=== PATIENT | female | born 1975 | race Caucasian/White ===

== ENCOUNTER 2016-08-24 16:36 | Emergency (ER) | payer OTHER ==
[~2016-08-24] VITALS: Ht 165.1 cm; Wt 58.1 kg
[~2016-08-24 16:36] MED LIST: CEPHALEXIN500 MG PO; CYCLOBENZAPRINE10 MG PO; IRON325 M1 PO; MELOXICAM15 MG PO; NAPROSYN500 MG PO; NORCO 5-325 TA1 EACH PO; PROVERA10 MG PO; SPRINTEC1 EACH PO; TRIAMCINOLONE A15 GM TOP; ZOFRAN ODT4 MG SL
[2017-01-05] MEDS ORDERED: PHENAZOPYRIDIN100 MG PO (22:31)
[2017-01-05] MEDS ORDERED: BENADRYL25 MG PO (22:35)
[2017-01-05] MEDS ORDERED: AZO URINARY P97.5 MG PO (22:35)
[2017-01-31] MEDS ORDERED: LOVENOX80 MG/0.8 SUB-Q (04:22)
[2017-02-17] MEDS ORDERED: AUGMENTIN 875-1 EACH PO (04:25)
== END 2016-08-24 17:05 | disposition home or self-care (01) ==
LOC: ED 16:36
DX: T63.441A Toxic effect of venom of bees, accidental (unintentional), initial encounter (principal); D64.9 Anemia, unspecified; F17.200 Nicotine dependence, unspecified, uncomplicated; Z88.2 Allergy status to sulfonamides; Z87.442 Personal history of urinary calculi; Z88.1 Allergy status to other antibiotic agents; Z91.030 Bee allergy status
CPT/HCPCS: 99282; J1200

== ENCOUNTER 2016-08-28 13:25 | Emergency (ER) | payer SELFPAY ==
[~2016-08-28] VITALS: Ht 165.1 cm; Wt 58.1 kg
[2017-01-05] MEDS ORDERED: PHENAZOPYRIDIN100 MG PO (22:31)
[2017-01-05] MEDS ORDERED: BENADRYL25 MG PO (22:35)
[2017-01-05] MEDS ORDERED: AZO URINARY P97.5 MG PO (22:35)
[2017-01-31] MEDS ORDERED: LOVENOX80 MG/0.8 SUB-Q (04:22)
[2017-02-17] MEDS ORDERED: AUGMENTIN 875-1 EACH PO (04:25)
== END 2016-08-28 13:42 | disposition home or self-care (01) ==
LOC: ED 13:25
DX: Z00.8 Encounter for other general examination (principal)

== ENCOUNTER 2016-09-01 20:32 | Emergency (ER) | payer SELFPAY ==
[~2016-09-01] VITALS: Ht 165.1 cm; Wt 58.1 kg
[2017-01-05] MEDS ORDERED: PHENAZOPYRIDIN100 MG PO (22:31)
[2017-01-05] MEDS ORDERED: BENADRYL25 MG PO (22:35)
[2017-01-05] MEDS ORDERED: AZO URINARY P97.5 MG PO (22:35)
[2017-01-31] MEDS ORDERED: LOVENOX80 MG/0.8 SUB-Q (04:22)
[2017-02-17] MEDS ORDERED: AUGMENTIN 875-1 EACH PO (04:25)
== END 2016-09-01 22:25 | disposition home or self-care (01) ==
LOC: ED 20:32
DX: Z53.21 Procedure and treatment not carried out due to patient leaving prior to being seen by health care provider (principal)

== ENCOUNTER 2016-09-02 22:00 | Emergency (ER) | payer OTHER ==
[~2016-09-02] VITALS: Ht 165.1 cm; Wt 58.1 kg
[2016-09-03] MEDS ORDERED: CEPHALEXIN500 MG PO (00:18)
[2016-09-03] MEDS ORDERED: INDOMETHACIN50 MG PO (00:18)
[2016-09-04] MEDS ORDERED: FERROUSUL325 MG PO (18:25)
[2017-01-05] MEDS ORDERED: PHENAZOPYRIDIN100 MG PO (22:31)
[2017-01-05] MEDS ORDERED: AZO URINARY P97.5 MG PO (22:35)
[2017-01-05] MEDS ORDERED: BENADRYL25 MG PO (22:35)
[2017-01-31] MEDS ORDERED: LOVENOX80 MG/0.8 SUB-Q (04:22)
[2017-02-17] MEDS ORDERED: AUGMENTIN 875-1 EACH PO (04:25)
== END 2016-09-03 00:35 | disposition home or self-care (01) ==
LOC: ED 22:00
DX: L03.115 Cellulitis of right lower limb (principal); M10.9 Gout, unspecified; Z85.41 Personal history of malignant neoplasm of cervix uteri; F17.200 Nicotine dependence, unspecified, uncomplicated; Z91.038 Other insect allergy status; Z88.1 Allergy status to other antibiotic agents; Z88.2 Allergy status to sulfonamides
CPT/HCPCS: 73610; 99283

== ENCOUNTER 2016-09-04 14:08 | Emergency (ER) | payer OTHER ==
[~2016-09-04] VITALS: Ht 165.1 cm; Wt 56.2 kg
[~2016-09-04 14:08] MED LIST changes: +INDOMETHACIN50 MG PO
[2016-09-04] MEDS ORDERED: FERROUSUL325 MG PO (18:25)
[2017-01-05] MEDS ORDERED: PHENAZOPYRIDIN100 MG PO (22:31)
[2017-01-05] MEDS ORDERED: BENADRYL25 MG PO (22:35)
[2017-01-05] MEDS ORDERED: AZO URINARY P97.5 MG PO (22:35)
[2017-01-31] MEDS ORDERED: LOVENOX80 MG/0.8 SUB-Q (04:22)
[2017-02-17] MEDS ORDERED: AUGMENTIN 875-1 EACH PO (04:25)
== END 2016-09-04 18:56 | disposition home or self-care (01) ==
LOC: ED 14:08
DX: R10.9 Unspecified abdominal pain (principal); N39.0 Urinary tract infection, site not specified; D64.9 Anemia, unspecified; F17.200 Nicotine dependence, unspecified, uncomplicated; Z87.442 Personal history of urinary calculi; Z88.2 Allergy status to sulfonamides; Z88.1 Allergy status to other antibiotic agents; Z91.030 Bee allergy status; Z79.899 Other long term (current) drug therapy
CPT/HCPCS: 74176; 80053; 81001; 83690; 84703; 85025; 87088; 96374; 99284; J1885; J7030

== ENCOUNTER 2016-09-05 01:00 | Emergency (ER) | payer OTHER ==
[~2016-09-05] VITALS: Ht 165.1 cm; Wt 56.2 kg
[~2016-09-05 01:00] MED LIST changes: +FERROUSUL325 MG PO
[2017-01-05] MEDS ORDERED: PHENAZOPYRIDIN100 MG PO (22:31)
[2017-01-05] MEDS ORDERED: AZO URINARY P97.5 MG PO (22:35)
[2017-01-05] MEDS ORDERED: BENADRYL25 MG PO (22:35)
[2017-01-31] MEDS ORDERED: LOVENOX80 MG/0.8 SUB-Q (04:22)
[2017-02-17] MEDS ORDERED: AUGMENTIN 875-1 EACH PO (04:25)
== END 2016-09-05 02:41 | disposition home or self-care (01) ==
LOC: ED 01:00
DX: D50.9 Iron deficiency anemia, unspecified (principal); L03.115 Cellulitis of right lower limb; F17.200 Nicotine dependence, unspecified, uncomplicated; Z87.442 Personal history of urinary calculi; Z88.2 Allergy status to sulfonamides; Z88.1 Allergy status to other antibiotic agents; Z79.899 Other long term (current) drug therapy; Z85.41 Personal history of malignant neoplasm of cervix uteri
CPT/HCPCS: 36415; 85025; 86900; 86901; 86920; 99283; P9016

== ENCOUNTER 2016-09-10 01:46 | Emergency (ER) | payer OTHER ==
[~2016-09-10] VITALS: Ht 165.1 cm; Wt 56.2 kg
[2016-09-10] MEDS ORDERED: METHYLPREDNISOLO4 M1 PO (01:53)
[2017-01-05] MEDS ORDERED: PHENAZOPYRIDIN100 MG PO (22:31)
[2017-01-05] MEDS ORDERED: AZO URINARY P97.5 MG PO (22:35)
[2017-01-05] MEDS ORDERED: BENADRYL25 MG PO (22:35)
[2017-01-31] MEDS ORDERED: LOVENOX80 MG/0.8 SUB-Q (04:22)
[2017-02-17] MEDS ORDERED: AUGMENTIN 875-1 EACH PO (04:25)
== END 2016-09-10 04:02 | disposition home or self-care (01) ==
LOC: ED 01:46
DX: M54.5 Low back pain (principal); R10.31 Right lower quadrant pain; R10.32 Left lower quadrant pain; D50.9 Iron deficiency anemia, unspecified; G89.29 Other chronic pain; F17.200 Nicotine dependence, unspecified, uncomplicated; Z87.442 Personal history of urinary calculi; Z91.030 Bee allergy status; Z88.2 Allergy status to sulfonamides; Z88.1 Allergy status to other antibiotic agents; Z79.899 Other long term (current) drug therapy
CPT/HCPCS: 80053; 81001; 83690; 84703; 85025; 99283

== ENCOUNTER 2016-10-12 19:56 | Emergency (ER) | payer OTHER ==
[~2016-10-12] VITALS: Ht 165.1 cm; Wt 56.2 kg
[~2016-10-12 19:56] MED LIST changes: +METHYLPREDNISOLO4 M1 PO
[2016-10-12] MEDS ORDERED: NORCO 5-325 TA1 EACH PO (20:19)
[2016-10-12] MEDS ORDERED: PERCOCET 5-3251 EACH PO (21:16)
[2017-01-05] MEDS ORDERED: PHENAZOPYRIDIN100 MG PO (22:31)
[2017-01-05] MEDS ORDERED: AZO URINARY P97.5 MG PO (22:35)
[2017-01-05] MEDS ORDERED: BENADRYL25 MG PO (22:35)
[2017-01-31] MEDS ORDERED: LOVENOX80 MG/0.8 SUB-Q (04:22)
[2017-02-17] MEDS ORDERED: AUGMENTIN 875-1 EACH PO (04:25)
== END 2016-10-12 21:27 | disposition home or self-care (01) ==
LOC: ED 19:56
DX: C53.9 Malignant neoplasm of cervix uteri, unspecified (principal); F17.200 Nicotine dependence, unspecified, uncomplicated; Z87.442 Personal history of urinary calculi; Z91.038 Other insect allergy status; Z88.1 Allergy status to other antibiotic agents; Z88.2 Allergy status to sulfonamides; Z79.2 Long term (current) use of antibiotics
CPT/HCPCS: 99283

== ENCOUNTER 2016-10-16 18:57 | Emergency (ER) | payer OTHER ==
[~2016-10-16] VITALS: Ht 165.1 cm; Wt 56.2 kg
[~2016-10-16 18:57] MED LIST changes: +PERCOCET 5-3251 EACH PO
[2016-10-16] MEDS ORDERED: PERCOCET 5-3251 EACH PO (20:16)
--- NOTE | 2016-10-17 17:35 | EKG ---
[facility] [address] [facility] [facility] [address] [place] [address] Signed Normal sinus rhythm Normal ECG No previous ECGs available Confirmed by AMARJIT NORTON MD ([id number]) on 10/17/2016 5:35:36 PM Electronically Signed By: AMARJIT NORTON MD 10/17/16 1735 PATIENT NAME: BULMARO CARDOZA Electrocardiogram DATE OF : 77 PHYSICIAN: AMARJIT NORTON MD REPORT #: [id number] REPORT IS CONFIDENTIAL AND NOT TO BE RELEASED WITHOUT AUTHORIZATION
[2017-01-05] MEDS ORDERED: PHENAZOPYRIDIN100 MG PO (22:31)
[2017-01-05] MEDS ORDERED: BENADRYL25 MG PO (22:35)
[2017-01-05] MEDS ORDERED: AZO URINARY P97.5 MG PO (22:35)
[2017-01-31] MEDS ORDERED: LOVENOX80 MG/0.8 SUB-Q (04:22)
[2017-02-17] MEDS ORDERED: AUGMENTIN 875-1 EACH PO (04:25)
== END 2016-10-16 20:38 | disposition home or self-care (01) ==
LOC: ED 18:57
DX: M54.5 Low back pain (principal); C76.0 Malignant neoplasm of head, face and neck; D64.9 Anemia, unspecified; F17.200 Nicotine dependence, unspecified, uncomplicated; Z87.442 Personal history of urinary calculi; Z86.711 Personal history of pulmonary embolism; Z91.030 Bee allergy status; Z88.2 Allergy status to sulfonamides; Z88.1 Allergy status to other antibiotic agents; Z79.899 Other long term (current) drug therapy
CPT/HCPCS: 71010; 80053; 81001; 84484; 85025; 85610; 85730; 93005; 93010; 99284

== ENCOUNTER 2016-10-20 14:57 | Emergency (ER) | payer OTHER ==
[~2016-10-20] VITALS: Ht 165.1 cm; Wt 56.2 kg
[2017-01-05] MEDS ORDERED: PHENAZOPYRIDIN100 MG PO (22:31)
[2017-01-05] MEDS ORDERED: AZO URINARY P97.5 MG PO (22:35)
[2017-01-05] MEDS ORDERED: BENADRYL25 MG PO (22:35)
[2017-01-31] MEDS ORDERED: LOVENOX80 MG/0.8 SUB-Q (04:22)
[2017-02-17] MEDS ORDERED: AUGMENTIN 875-1 EACH PO (04:25)
== END 2016-10-20 15:33 | disposition left against medical advice (07) ==
LOC: ED 14:57
DX: F15.10 Other stimulant abuse, uncomplicated (principal); D64.9 Anemia, unspecified; F17.200 Nicotine dependence, unspecified, uncomplicated; Z91.030 Bee allergy status; Z88.2 Allergy status to sulfonamides; Z88.1 Allergy status to other antibiotic agents; Z79.899 Other long term (current) drug therapy; Z87.442 Personal history of urinary calculi; Z85.89 Personal history of malignant neoplasm of other organs and systems
CPT/HCPCS: 99283

== ENCOUNTER 2016-10-21 11:23 | Emergency (ER) | payer OTHER ==
[~2016-10-21] VITALS: Ht 165.1 cm; Wt 56.2 kg
[2017-01-05] MEDS ORDERED: PHENAZOPYRIDIN100 MG PO (22:31)
[2017-01-05] MEDS ORDERED: AZO URINARY P97.5 MG PO (22:35)
[2017-01-05] MEDS ORDERED: BENADRYL25 MG PO (22:35)
[2017-01-31] MEDS ORDERED: LOVENOX80 MG/0.8 SUB-Q (04:22)
[2017-02-17] MEDS ORDERED: AUGMENTIN 875-1 EACH PO (04:25)
== END 2016-10-21 13:34 | disposition home or self-care (01) ==
LOC: ED 11:23
DX: R10.9 Unspecified abdominal pain (principal); G89.29 Other chronic pain; D53.9 Nutritional anemia, unspecified; F17.200 Nicotine dependence, unspecified, uncomplicated; Z87.442 Personal history of urinary calculi; Z85.41 Personal history of malignant neoplasm of cervix uteri; Z86.711 Personal history of pulmonary embolism; Z91.038 Other insect allergy status; Z88.1 Allergy status to other antibiotic agents; Z88.2 Allergy status to sulfonamides
CPT/HCPCS: 36415; 85025; 85610; 85730; 96372; 99283; J1885

== ENCOUNTER 2016-10-22 13:02 | Emergency (ER) | payer OTHER ==
[~2016-10-22] VITALS: Ht 165.1 cm; Wt 56.2 kg
--- NOTE | 2016-10-24 21:46 | EKG ---
[facility] [address] [facility] [place] [address] Signed Normal sinus rhythm Normal ECG When compared with ECG of 16-OCT-2016 19:02, No significant change was found Confirmed by AMARJIT NORTON MD ([id number]) on 10/24/2016 9:46:10 PM Electronically Signed By: AMARJIT NORTON MD 10/24/16 2146 PATIENT NAME: SONYBULMAROASHLY ANDREWS Electrocardiogram DATE OF : 77 PHYSICIAN: AMARJIT NORTON MD REPORT #: [id number] REPORT IS CONFIDENTIAL AND NOT TO BE RELEASED WITHOUT AUTHORIZATION
[2017-01-05] MEDS ORDERED: PHENAZOPYRIDIN100 MG PO (22:31)
[2017-01-05] MEDS ORDERED: BENADRYL25 MG PO (22:35)
[2017-01-05] MEDS ORDERED: AZO URINARY P97.5 MG PO (22:35)
[2017-01-31] MEDS ORDERED: LOVENOX80 MG/0.8 SUB-Q (04:22)
[2017-02-17] MEDS ORDERED: AUGMENTIN 875-1 EACH PO (04:25)
== END 2016-10-22 14:41 | disposition home or self-care (01) ==
LOC: ED 13:02
DX: R06.00 Dyspnea, unspecified (principal); R07.89 Other chest pain; D64.9 Anemia, unspecified; F17.200 Nicotine dependence, unspecified, uncomplicated; Z87.442 Personal history of urinary calculi; Z85.41 Personal history of malignant neoplasm of cervix uteri; Z86.711 Personal history of pulmonary embolism; Z91.038 Other insect allergy status; Z88.1 Allergy status to other antibiotic agents; Z88.2 Allergy status to sulfonamides; Z79.899 Other long term (current) drug therapy
CPT/HCPCS: 36415; 71010; 80053; 84484; 85025; 93005; 93010; 99284

== ENCOUNTER 2016-10-24 16:30 | Emergency (ER) | payer OTHER ==
[~2016-10-24] VITALS: Ht 165.1 cm; Wt 56.2 kg
[2016-10-24] MEDS ORDERED: DOXYCYCLINE HY100 MG PO (19:02)
[2017-01-05] MEDS ORDERED: PHENAZOPYRIDIN100 MG PO (22:31)
[2017-01-05] MEDS ORDERED: BENADRYL25 MG PO (22:35)
[2017-01-05] MEDS ORDERED: AZO URINARY P97.5 MG PO (22:35)
[2017-01-31] MEDS ORDERED: LOVENOX80 MG/0.8 SUB-Q (04:22)
[2017-02-17] MEDS ORDERED: AUGMENTIN 875-1 EACH PO (04:25)
== END 2016-10-24 19:10 | disposition home or self-care (01) ==
LOC: ED 16:30
DX: N39.0 Urinary tract infection, site not specified (principal); D53.9 Nutritional anemia, unspecified; F17.200 Nicotine dependence, unspecified, uncomplicated; F19.10 Other psychoactive substance abuse, uncomplicated; Z87.442 Personal history of urinary calculi; Z85.41 Personal history of malignant neoplasm of cervix uteri; Z86.711 Personal history of pulmonary embolism; Z91.038 Other insect allergy status; Z88.1 Allergy status to other antibiotic agents; Z88.2 Allergy status to sulfonamides; Z79.899 Other long term (current) drug therapy
CPT/HCPCS: 80053; 81001; 84703; 85025; 87088; 96361; 96365; 96375; 99283; J0696; J1885; J7030

== ENCOUNTER 2016-11-04 20:33 | Emergency (ER) | payer OTHER ==
[~2016-11-04] VITALS: Ht 165.1 cm; Wt 56.2 kg
[~2016-11-04 20:33] MED LIST changes: +DOXYCYCLINE HY100 MG PO
[2016-11-04] MEDS ORDERED: PERCOCET 5-3251 EACH PO (20:44)
[2017-01-05] MEDS ORDERED: PHENAZOPYRIDIN100 MG PO (22:31)
[2017-01-05] MEDS ORDERED: BENADRYL25 MG PO (22:35)
[2017-01-05] MEDS ORDERED: AZO URINARY P97.5 MG PO (22:35)
[2017-01-31] MEDS ORDERED: LOVENOX80 MG/0.8 SUB-Q (04:22)
[2017-02-17] MEDS ORDERED: AUGMENTIN 875-1 EACH PO (04:25)
== END 2016-11-04 23:50 | disposition home or self-care (01) ==
LOC: ED 20:33
DX: D50.9 Iron deficiency anemia, unspecified (principal); C53.9 Malignant neoplasm of cervix uteri, unspecified; F17.200 Nicotine dependence, unspecified, uncomplicated; Z87.442 Personal history of urinary calculi; Z86.711 Personal history of pulmonary embolism; Z88.1 Allergy status to other antibiotic agents; Z88.2 Allergy status to sulfonamides; Z91.038 Other insect allergy status; Z79.899 Other long term (current) drug therapy; Z98.890 Other specified postprocedural states
CPT/HCPCS: 80053; 81001; 85025; 86850; 86900; 86901; 99283

== ENCOUNTER 2016-11-30 09:45 | Emergency (ER) | payer OTHER ==
[~2016-11-30] VITALS: Ht 165.1 cm; Wt 51.3 kg
[2016-11-30] MEDS ORDERED: OXYCONTIN15 MG PO (11:15)
[2016-11-30] MEDS ORDERED: FERROUS SULFAT325 MG PO (11:55)
[2016-11-30] MEDS ORDERED: PERCOCET 5-3251 EACH PO (11:56)
[2016-11-30] MEDS ORDERED: NORCO 5-325 TA1 EACH PO (11:56)
[2016-11-30] MEDS ORDERED: NICODERM CQ1 EAC1 TD (11:58)
[2016-11-30] MEDS ORDERED: OXYCODONE HCL15 MG PO (11:59)
[2016-11-30] MEDS ORDERED: XARELTO10 MG PO (12:12)
[2017-01-05] MEDS ORDERED: PHENAZOPYRIDIN100 MG PO (22:31)
[2017-01-05] MEDS ORDERED: AZO URINARY P97.5 MG PO (22:35)
[2017-01-05] MEDS ORDERED: BENADRYL25 MG PO (22:35)
[2017-01-31] MEDS ORDERED: LOVENOX80 MG/0.8 SUB-Q (04:22)
[2017-02-17] MEDS ORDERED: AUGMENTIN 875-1 EACH PO (04:25)
== END 2016-11-30 12:30 | disposition home or self-care (01) ==
LOC: ED 09:45
DX: G89.3 Neoplasm related pain (acute) (chronic) (principal); C76.0 Malignant neoplasm of head, face and neck; Z87.442 Personal history of urinary calculi; F17.200 Nicotine dependence, unspecified, uncomplicated; Z91.030 Bee allergy status; Z88.2 Allergy status to sulfonamides; Z88.1 Allergy status to other antibiotic agents; Z79.899 Other long term (current) drug therapy
CPT/HCPCS: 99282

== ENCOUNTER 2016-12-06 20:36 | Emergency (ER) | payer OTHER ==
[~2016-12-06] VITALS: Ht 165.1 cm; Wt 51.3 kg
[~2016-12-06 20:36] MED LIST changes: +FERROUS SULFAT325 MG PO; +NICODERM CQ1 EAC1 TD; +OXYCODONE HCL15 MG PO; +OXYCONTIN15 MG PO; +XARELTO10 MG PO
[2017-01-05] MEDS ORDERED: PHENAZOPYRIDIN100 MG PO (22:31)
[2017-01-05] MEDS ORDERED: AZO URINARY P97.5 MG PO (22:35)
[2017-01-05] MEDS ORDERED: BENADRYL25 MG PO (22:35)
[2017-01-31] MEDS ORDERED: LOVENOX80 MG/0.8 SUB-Q (04:22)
[2017-02-17] MEDS ORDERED: AUGMENTIN 875-1 EACH PO (04:25)
== END 2016-12-07 00:05 | disposition home or self-care (01) ==
LOC: ED 20:36
DX: C53.9 Malignant neoplasm of cervix uteri, unspecified (principal); D64.9 Anemia, unspecified; F17.200 Nicotine dependence, unspecified, uncomplicated; Z86.711 Personal history of pulmonary embolism; Z88.2 Allergy status to sulfonamides; Z88.1 Allergy status to other antibiotic agents; Z91.038 Other insect allergy status; Z87.442 Personal history of urinary calculi; Z91.030 Bee allergy status
CPT/HCPCS: 80053; 81001; 85025; 96374; 96375; 99283; J1170; J2405

== ENCOUNTER 2016-12-12 20:12 | Emergency (ER) | payer OTHER ==
[~2016-12-12] VITALS: Ht 165.1 cm; Wt 51.7 kg
[2016-12-12] MEDS ORDERED: DEXAMETHASONE4 MG PO (21:20)
[2016-12-12] MEDS ORDERED: OXYBUTYNIN CHLO10 MG PO (21:20)
[2016-12-12] MEDS ORDERED: ONDANSETRON ODT8 MG PO (21:21)
[2016-12-12] MEDS ORDERED: FLOMAX0.4 MG PO (21:24)
[2016-12-12] MEDS ORDERED: XARELTO15 MG PO (21:29)
[2016-12-12] MEDS ORDERED: PERCOCET 5-3251 EACH PO (21:31)
[2016-12-12] MEDS ORDERED: ATIVAN0.5 MG PO (21:32)
[2017-01-05] MEDS ORDERED: PHENAZOPYRIDIN100 MG PO (22:31)
[2017-01-05] MEDS ORDERED: AZO URINARY P97.5 MG PO (22:35)
[2017-01-05] MEDS ORDERED: BENADRYL25 MG PO (22:35)
[2017-01-31] MEDS ORDERED: LOVENOX80 MG/0.8 SUB-Q (04:22)
[2017-02-17] MEDS ORDERED: AUGMENTIN 875-1 EACH PO (04:25)
== END 2016-12-12 23:39 | disposition home or self-care (01) ==
LOC: ED 20:12
DX: C53.9 Malignant neoplasm of cervix uteri, unspecified (principal); F17.200 Nicotine dependence, unspecified, uncomplicated; Z87.442 Personal history of urinary calculi; Z91.030 Bee allergy status; Z88.2 Allergy status to sulfonamides; Z88.1 Allergy status to other antibiotic agents; Z79.899 Other long term (current) drug therapy; Z79.891 Long term (current) use of opiate analgesic
CPT/HCPCS: 99282

== ENCOUNTER 2016-12-19 22:53 | Emergency (ER) | payer OTHER ==
[~2016-12-19] VITALS: Ht 165.1 cm; Wt 51.7 kg
[~2016-12-19 22:53] MED LIST changes: +ATIVAN0.5 MG PO; +DEXAMETHASONE4 MG PO; +FLOMAX0.4 MG PO; +ONDANSETRON ODT8 MG PO; +OXYBUTYNIN CHLO10 MG PO; +XARELTO15 MG PO
[2017-01-05] MEDS ORDERED: PHENAZOPYRIDIN100 MG PO (22:31)
[2017-01-05] MEDS ORDERED: AZO URINARY P97.5 MG PO (22:35)
[2017-01-05] MEDS ORDERED: BENADRYL25 MG PO (22:35)
[2017-01-31] MEDS ORDERED: LOVENOX80 MG/0.8 SUB-Q (04:22)
[2017-02-17] MEDS ORDERED: AUGMENTIN 875-1 EACH PO (04:25)
== END 2016-12-20 02:02 | disposition left against medical advice (07) ==
LOC: ED 22:53
DX: R06.00 Dyspnea, unspecified (principal); C76.0 Malignant neoplasm of head, face and neck; G89.29 Other chronic pain; Z87.442 Personal history of urinary calculi; F17.200 Nicotine dependence, unspecified, uncomplicated; Z91.030 Bee allergy status; Z88.2 Allergy status to sulfonamides; Z88.1 Allergy status to other antibiotic agents; Z79.899 Other long term (current) drug therapy
CPT/HCPCS: 71010; 84703; 96374; 99283

== ENCOUNTER 2016-12-25 20:36 | Emergency (ER) | payer OTHER ==
[~2016-12-25] VITALS: Ht 165.1 cm; Wt 52.6 kg
[2016-12-25] MEDS ORDERED: ROXICODONE15 MG PO (20:53)
[2017-01-05] MEDS ORDERED: PHENAZOPYRIDIN100 MG PO (22:31)
[2017-01-05] MEDS ORDERED: AZO URINARY P97.5 MG PO (22:35)
[2017-01-05] MEDS ORDERED: BENADRYL25 MG PO (22:35)
[2017-01-31] MEDS ORDERED: LOVENOX80 MG/0.8 SUB-Q (04:22)
[2017-02-17] MEDS ORDERED: AUGMENTIN 875-1 EACH PO (04:25)
== END 2016-12-25 23:30 | disposition home or self-care (01) ==
LOC: ED 20:36
PROC: 4A0D7LZ Measurement of Urinary Volume, Via Natural or Artificial Opening (ICD-10-PCS; principal; 2016-12-25)
DX: C53.9 Malignant neoplasm of cervix uteri, unspecified (principal); F17.200 Nicotine dependence, unspecified, uncomplicated; Z87.442 Personal history of urinary calculi; Z88.2 Allergy status to sulfonamides; Z91.030 Bee allergy status; Z79.899 Other long term (current) drug therapy; Z88.1 Allergy status to other antibiotic agents
CPT/HCPCS: 51798; 81001; 87088; 96374; 96375; 99283; J0696; J1170; J2405

== ENCOUNTER 2016-12-27 02:31 | Emergency (ER) | payer OTHER ==
[~2016-12-27] VITALS: Ht 165.1 cm; Wt 52.6 kg
--- OUTSIDE RECORDS SUMMARY | ~2016-12-27 | XMS | Encounter Summary ---
Demographics + + + | Address | [address] | | | [place] [address] | + + + | Home Phone | | + + + | Preferred Language | Unknown | + + + | Marital Status | Single | + + + | Sikh Affiliation | Unknown | + + + | Race | White | + + + | Ethnic Group | Not or | + + + Author + + + | Author | [facility] | + + + | Organization | [facility] | + + + | Address | Unknown | + + + | Phone | Unavailable | + + + Support +------+ +---------+ + | Name | Relationship | Address | Phone | +------+ +---------+ + ECON | Unknown | | +------+ +---------+ + Care Team Providers + +------+ + | Care Product Inspection Coordinator Name | Role | Phone | [...] | | | | | | Road [place], [place] | | | | | | [address] | | | +--------+ + + + [...] Rd | | | | | | [place], [place] | | | | | | [address] | | | | | | [phone] | | | | | | | | +--------+---------+ + + + as of this encounter Visit Diagnoses Not on filein this encounter Admitting Diagnoses + + | Diagnosis | + + | Malignant neoplasm of cervix uteri, unspecified | + +"
--- OUTSIDE RECORDS SUMMARY | ~2016-12-27 | XMS | Encounter Summary ---
Demographics + + + | Address | [address] | | | [place] [address] | + + + | Home Phone | | + + + | Preferred Language | Unknown | + + + | Marital Status | Single | + + + | Denominational Affiliation | Unknown | + + + | Race | White | + + + | Ethnic Group | Not or | + + + Author + + + | Author | [facility] | + + + | Organization | [facility] | + + + | Address | Unknown | + + + | Phone | Unavailable | + + + Support +------+ +---------+ + | Name | Relationship | Address | Phone | +------+ +---------+ + ECON | Unknown | | +------+ +---------+ + Care Team Providers + +------+ + | Care Tray Drier Operator Name | Role | Phone | [...] | | | | | | Road [place], [place] | | | | | | [address] | | | +--------+ + + + [...] Rd | | | | | | [place], [place] | | | | | | [address] | | | | | | [phone] | | | | | | | | +--------+---------+ + + + as of this encounter Visit Diagnoses Not on filein this encounter Admitting Diagnoses + + | Diagnosis | + + | Malignant neoplasm of cervix uteri, unspecified | + +"
--- OUTSIDE RECORDS SUMMARY | ~2016-12-27 | XMS | Encounter Summary ---
Demographics + + + | Address | [address] | | | [place] [address] | + + + | Home Phone | | + + + | Preferred Language | Unknown | + + + | Marital Status | Single | + + + | Caodaism Affiliation | Unknown | + + + [...] Team Providers + +------+ + | Care Barn Hand Name | Role | Phone | + [...] | | | | | | Road [place], [place] | | | | | | [address] | | | +--------+ + + + [...] Rd | | | | | | [place], [place] | | | | | | [address] | | | | | | [phone] | | | | | | | [...] | | | Received:Referring Institution: [facility] | | | | [place], [place] [address]O[place]z | | | | Accession Number: [id number] | | | | Collection Date: | | | | 09/21/2016Sublabeled H&E | | | | A to | | | | B 2 | | | | Final Pathologic Diagnosis:A. Cervix, | | | | biopsy ([id number]; 09/21/16, sublabeled | | | | A): - Invasive well differentiated | | | | adenocarcinoma. B. Endocervix, | | | | curettage ([id number]; 09/21/16, sublabeled | | | | B):- [...] Laboratory | + + + | | [facility] [address] | | | [place] [address] | + + + in this encounter Visit Diagnoses Not on filein this encounter Admitting Diagnoses + + | Diagnosis | + + | Malignant neoplasm of cervix uteri, unspecified | + +"
--- OUTSIDE RECORDS SUMMARY | ~2016-12-27 | XMS | Encounter Summary ---
Demographics + + + | Address | [address] | | | [place] [address] | + + + | Home Phone [...] Author + + + | Author | [facility] | + + + | Organization | [facility] | + + + | Address | Unknown | + + + | Phone | Unavailable | + + + Support +------+ +---------+ + | Name | Relationship | Address | Phone | +------+ +---------+ + ECON | Unknown | | +------+ +---------+ + Care Team Providers + +------+ + | Care Assembler Tubing Name | Role | Phone | + [...] Prior Authorization | | 2016 | | [facility] | [address] | Request - Medication | | | | [address] | [address] | | | | | [address] | [place], [place] | | | | | [address] | [address] | | | | | Shubham [place], | [phone] | | | | | [place] [address] | | | | | | [phone] | | | +--------+ + + + [...] Rd | | | | | | [place], [place] | | | | | | [address] | | | | | | [phone] | | | | | | | | +--------+---------+ + + + as of this encounter Visit Diagnoses Not on filein this encounter"
--- OUTSIDE RECORDS SUMMARY | ~2016-12-27 | XMS | Clinical Summary ---
Demographics + + + | Address | [address] | | | [place] [address] | + + + | Home Phone | | + + + | Preferred Language | Unknown | + + + | Marital Status | Single | + + + | Advent Affiliation | Unknown | + + + [...] Team Providers + +------+ + | Care Fuselage Framer Name | Role | Phone | + +------+ + | No Pcp Per Patient | PP | Unavailable | + +------+ + Source Comments FARRUKH is fully live on both [facility] and [facility] In[facility] Allergies + + [...] + + + + | 10/30/ | Transit Mechanic | | Quirino Martinez, | Malignant neoplasm [...] Rd | | | | | | [place], [place] | | | | | | [address] | | | | | | [phone] | | | | | | | [...] Materials | | | | Received:Referring Institution: [facility] | | | | [place], [place] [address]w | | | | Accession Number: [id number] | | | | Collection Date: | | | | 09/21/2016Sublabeled H&E | | | | A to | | | | B 2 | | | | Final Pathologic Diagnosis:A. Cervix, | | | | biopsy ([id number]; 09/21/16, sublabeled | | | | A): - Invasive well differentiated | | | | adenocarcinoma. B. Endocervix, | | | | curettage ([id number]; 09/21/16, sublabeled | | | | B):- [...] [facility] DEPARTMENT OF PATHOLOGY [address] | | | [place] [address] | + + + from Last 3 Months
--- OUTSIDE RECORDS SUMMARY | ~2016-12-27 | XMS | Encounter Summary ---
Demographics + + + | Address | [address] | | | [place] [address] | + + + | Home Phone | | + + + | Preferred Language | Unknown | + + + | Marital Status | Single | + + + | Yarsanism Affiliation | Unknown | + + + | Race | White | + + + | Ethnic Group | Not or | + + + Author + + + | Author | [facility] | + + + | Organization | [facility] | + + + | Address | Unknown | + + + | Phone | Unavailable | + + + Support +------+ +---------+ + | Name | Relationship | Address | Phone | +------+ +---------+ + ECON | Unknown | | +------+ +---------+ + Care Team Providers + +------+ + | Care Truck Cleaner Name | Role | Phone | [...] Prior Authorization | | 2016 | | [facility] | [address] | Request - Medication | | | | [address] | [address] | | | | | [address] | [place], [place] | | | | | [address] | [address] | | | | | Sh[place]ham [place], | [phone] | | | | | [place] [address] | | | | | | [phone] | | | +--------+ + + + [...] Rd | | | | | | [place], [place] | | | | | | [address] | | | | | | [phone] | | | | | | | | +--------+---------+ + + + as of this encounter Visit Diagnoses Not on filein this encounter"
--- OUTSIDE RECORDS SUMMARY | ~2016-12-27 | XMS | Encounter Summary ---
Demographics + + + | Address | [address] | | | [place] [address] | + + + | Home Phone | | + + + | Preferred Language | Unknown | + + + | Marital Status | Single | + + + | Episcopalian Affiliation | Unknown | + + + [...] Team Providers + +------+ + | Care Hospice Executive Director Name | Role | Phone | [...] | | 2016 | | [facility] | [address] | Michelle) | | | | Shubham [address] | [address] | | | | | [address] | [place], [place] | | | | | Road [address] | [address] | | | | | Shubham [place], | [phone] | | | | | [place] [address] | | | | | | [phone] | | | +--------+ + + + [...] Rd | | | | | | [facility] [place] | | | | | | [address] | | | | | | [phone] | | | | | | | | +--------+---------+ + + + as of this encounter Visit Diagnoses + + | Diagnosis | + + | Malignant neoplasm of cervix, unspecified site (HCC) - Primary | + +"
--- OUTSIDE RECORDS SUMMARY | ~2016-12-27 | XMS | Encounter Summary ---
Demographics + + + | Address | [address] | | | [place] [address] | + + + | Home Phone | | + + + | Preferred Language | Unknown | + + + | Marital Status | Single | + + + | Alevism Affiliation | Unknown | + + + | Race | White | + + + | Ethnic Group | Not or | + + + Author + + + | Author | [facility] | + + + | Organization | [facility] | + + + | Address | Unknown | + + + | Phone | Unavailable | + + + Support +------+ +---------+ + | Name | Relationship | Address | Phone | +------+ +---------+ + ECON | Unknown | | +------+ +---------+ + Care Team Providers + +------+ + | Care Report Specialist Name | Role | Phone | + +------+ + | No Pcp Per Patient | PCP | Unavailable | + +------+ + Encounter Details +--------+ + + + + | Date | Type | Department | Care Team | Description | +--------+ + + + + | 10/30/ | Radius Grinder | [facility] | Quirino Martinez, | Malignant neoplasm | | 2017 | | [facility] | [address] | of cervix, | | | | Pavilion [address] | unspecified site | | | | [address] | [place], [place] | ([facility]) (Primary Dx) | | | | Road [address] | [address] | | | | | [place], | [phone] | | | | | [place] [address] | | | | | | [phone] | | | +--------+ + + + [...] Eric | | | | | | [facility] | | | | | | [place], [place] | | | | | | [address] | | | | | | [phone] | | | | | | | [...] Laboratory | + + + | | [facility] DEPARTMENT OF PATHOLOGY [address] | | | [place] [address] | + + + in this encounter Visit Diagnoses + + | Diagnosis | + + | Malignant neoplasm of cervix, unspecified site (HCC) - Primary | + +"
[~2016-12-27 02:31] MED LIST changes: +ROXICODONE15 MG PO
[2017-01-05] MEDS ORDERED: PHENAZOPYRIDIN100 MG PO (22:31)
[2017-01-05] MEDS ORDERED: BENADRYL25 MG PO (22:35)
[2017-01-05] MEDS ORDERED: AZO URINARY P97.5 MG PO (22:35)
[2017-01-31] MEDS ORDERED: LOVENOX80 MG/0.8 SUB-Q (04:22)
[2017-02-17] MEDS ORDERED: AUGMENTIN 875-1 EACH PO (04:25)
== END 2016-12-27 05:08 | disposition home or self-care (01) ==
LOC: ED 02:31
DX: C53.9 Malignant neoplasm of cervix uteri, unspecified (principal); F17.200 Nicotine dependence, unspecified, uncomplicated; Z87.442 Personal history of urinary calculi; D64.9 Anemia, unspecified; Z91.030 Bee allergy status; Z88.2 Allergy status to sulfonamides; Z88.1 Allergy status to other antibiotic agents; Z88.8 Allergy status to other drugs, medicaments and biological substances; Z79.899 Other long term (current) drug therapy
CPT/HCPCS: 80053; 85025; 96361; 96374; 96375; 99284; J2405; J7030

== ENCOUNTER 2016-12-30 12:59 | Emergency (ER) | payer OTHER ==
[~2016-12-30] VITALS: Ht 165.1 cm; Wt 54.0 kg
--- OUTSIDE RECORDS SUMMARY | ~2016-12-30 | XMS | Encounter Summary ---
Demographics + + + | Address | [address] | | | [place] [address] | + + + | Home Phone [...] Team Providers + +------+ + | Care Operations Consultant Name | Role | Phone | [...] | | 2016 | | [facility] | [address] | Michelle) | | | | [address]ham [address] | [address] | | | | | [address] | [place], [place] | | | | | Road [address] | [address] | | | | | Shubham [place], | [phone] | | | | | [place] [address] | | | | | | [phone] | | | +--------+ + + + [...] Rd | | | | | | [facility] [place] | | | | | | [address] | | | | | | [phone] | | | | | | | | +--------+---------+ + + + as of this encounter Visit Diagnoses + + | Diagnosis | + + | Malignant neoplasm of cervix, unspecified site (HCC) - Primary | + +"
--- OUTSIDE RECORDS SUMMARY | ~2016-12-30 | XMS | Encounter Summary ---
Demographics + + + | Address | [address] | | | [place] [address] | + + + | Home Phone | | + + + | Preferred Language | Unknown | + + + | Marital Status | Single | + + + | Latter-Day Affiliation | Unknown | + + + | Race | White | + + + | Ethnic Group | Not or | + + + Author + + + | Author | [facility] | + + + | Organization | [facility] | + + + | Address | Unknown | + + + | Phone | Unavailable | + + + Support +------+ +---------+ + | Name | Relationship | Address | Phone | +------+ +---------+ + ECON | Unknown | | +------+ +---------+ + Care Team Providers + +------+ + | Care Underwriting Clerk Name | Role | Phone | + +------+ + | No Pcp Per Patient | PCP | Unavailable | + +------+ + Encounter Details +--------+ + + + + | Date | Type | Department | Care Team | Description | +--------+ + + + + | 10/30/ | Watershed Engineer | [facility] | Quirino Martinez, | Malignant neoplasm | | 2017 | | [facility] | [address] | of cervix, | | | | Pavilion [address] | [address] | unspecified site | | | | [address] | [place], [place] | ([facility]) (Primary Dx) | | | | Road [address] | [address] | | | | | [place], | [phone] | | | | | [place] [address] | | | | | | [phone] | | | +--------+ + + + [...] Eric | | | | | | [facility] | | | | | | [place], [place] | | | | | | [address] | | | | | | [phone] | | | | | | | [...] Laboratory | + + + | | [facility] DEPARTMENT OF PATHOLOGY [address] | | | [place] [address] | + + + in this encounter Visit Diagnoses + + | Diagnosis | + + | Malignant neoplasm of cervix, unspecified site (HCC) - Primary | + +"
--- OUTSIDE RECORDS SUMMARY | ~2016-12-30 | XMS | Encounter Summary ---
Demographics + + + | Address | [address] | | | [place] [address] | + + + | Home Phone | | + + + | Preferred Language | Unknown | + + + | Marital Status | Single | + + + | Quaker Affiliation | Unknown | + + + [...] Team Providers + +------+ + | Care Hotel Baggage Handler Name | Role | Phone | + [...] Refill Request | | 2017 | | [facility] | [address] | | | | | [address]ub[place] [address] | [address] | | | | | [address] | [place], [place] | | | | | Road [address] | [address] | | | | | Shubham [place], | [phone] | | | | | [place] [address] | | | | | | [phone] | | | +--------+ + + + [...] Rd | | | | | | [place], [place] | | | | | | [address] | | | | | | [phone] | | | | | | | | +--------+---------+ + + + as of this encounter Visit Diagnoses Not on filein this encounter"
[2016-12-30] MEDS ORDERED: DEXAMETHASONE4 MG PO (13:13)
[2017-01-05] MEDS ORDERED: PHENAZOPYRIDIN100 MG PO (22:31)
[2017-01-05] MEDS ORDERED: AZO URINARY P97.5 MG PO (22:35)
[2017-01-05] MEDS ORDERED: BENADRYL25 MG PO (22:35)
[2017-01-31] MEDS ORDERED: LOVENOX80 MG/0.8 SUB-Q (04:22)
[2017-02-17] MEDS ORDERED: AUGMENTIN 875-1 EACH PO (04:25)
== END 2016-12-30 15:18 | disposition home or self-care (01) ==
LOC: ED 12:59
DX: S20.219A Contusion of unspecified front wall of thorax, initial encounter (principal); D64.9 Anemia, unspecified; F17.200 Nicotine dependence, unspecified, uncomplicated; Z87.442 Personal history of urinary calculi; Z86.711 Personal history of pulmonary embolism; Z91.038 Other insect allergy status; Z88.2 Allergy status to sulfonamides; Z88.1 Allergy status to other antibiotic agents; Z88.8 Allergy status to other drugs, medicaments and biological substances; Z79.899 Other long term (current) drug therapy; Y04.2XXA Assault by strike against or bumped into by another person, initial encounter
CPT/HCPCS: 71020; 99283

== ENCOUNTER → 2017-01-05 | Emergency (ER) | payer OTHER ==
[~2017-01-05] VITALS: Ht 165.1 cm; Wt 54.0 kg
[~2017-01-05] MED LIST changes: +AUGMENTIN 875-1 EACH PO; +AZO URINARY P97.5 MG PO; +BENADRYL25 MG PO; +CIPRO500 MG PO; +DIFLUCAN100 MG PO; +FLEET ENEMA133 ML PR; +LOVENOX80 MG/0.8 SUB-Q; +MACROBID 100 M100 MG PO; +PHENAZOPYRIDIN100 MG PO; +SENNA8.6 MG PO
== END ==
LOC: ED 22:05
DX: B37.0 Candidal stomatitis (principal); C53.9 Malignant neoplasm of cervix uteri, unspecified; F17.200 Nicotine dependence, unspecified, uncomplicated; Z87.442 Personal history of urinary calculi; Z86.711 Personal history of pulmonary embolism; Z91.030 Bee allergy status; Z88.2 Allergy status to sulfonamides; Z88.8 Allergy status to other drugs, medicaments and biological substances; Z88.1 Allergy status to other antibiotic agents; Z79.899 Other long term (current) drug therapy
CPT/HCPCS: 99283

== ENCOUNTER 2017-01-14 17:14 | Emergency (ER) | payer OTHER ==
[~2017-01-14] VITALS: Ht 165.1 cm; Wt 54.0 kg
--- OUTSIDE RECORDS SUMMARY | ~2017-01-14 | XMS | Encounter Summary ---
Demographics + + + | Address | [address] | | | [place] [address] | + + + | Home Phone | | + + + | Preferred Language | Unknown | + + + | Marital Status | Single | + + + | Anabaptist Affiliation | Unknown | + + + | Race | White | + + + | Ethnic Group | Not or | + + + Author + + + | Author | [facility] | + + + | Organization | [facility] | + + + | Address | Unknown | + + + | Phone | Unavailable | + + + Support +------+ +---------+ + | Name | Relationship | Address | Phone | +------+ +---------+ + ECON | Unknown | | +------+ +---------+ + Care Team Providers + +------+ + | Care Activities Director Name | Role | Phone | + [...] | | | | | | Road [place], [place] | | | | | | [address] | | | +--------+ + + + [...] Rd | | | | | | [place], [place] | | | | | | [address] | | | | | | [phone] | | | | | | | | +--------+---------+ + + + as of this encounter Visit Diagnoses Not on filein this encounter Admitting Diagnoses + + | Diagnosis | + + | Malignant neoplasm of cervix uteri, unspecified | + +"
--- OUTSIDE RECORDS SUMMARY | ~2017-01-14 | XMS | Encounter Summary ---
Demographics + + + | Address | [address] | | | [place] [address] | + + + | Home Phone [...] Author + + + | Author | [facility] | + + + | Organization | [facility] | + + + | Address | Unknown | + + + | Phone | Unavailable | + + + Support +------+ +---------+ + | Name | Relationship | Address | Phone | +------+ +---------+ + ECON | Unknown | | +------+ +---------+ + Care Team Providers + +------+ + | Care Community Cultural Development Officer Name | Role | Phone | + [...] | stage IB2 | [address] | [facility] | | | | | (HCC) | [address] | Regional | | | | | Procedures | [place], [place] | Cancer Cntr | | | | | CONSULT TO | [address] | [address] | | | | | NON - [facility] | Phone: | Marti Kidd, | | | | | PROVIDER | [phone] | [place] [address] | | | | | | Fax: | Phone: | | | | | | [phone] | [phone] | | | | | | | Fax: | | | | | | | [phone] | + +--------+ + + + + [...] cancer, FIGO | [address] | | | | | stage IB2 | [address] | [facility] | | | | | (HCC) | [address] | [address] | | | | | Procedures | [place], [place] | [address] | | | | | CONSULT TO | [address] | [place], | | | | | NON - [facility] | Phone: | [place] [address] | | | | | PROVIDER | [phone] | Phone: | | | | | | Fax: | [phone] | | | | | | [phone] | Fax: | | | | | | | [phone] | + +--------+ + + + + [...] & | Diagnoses | Non-[facility] | [facility] | | | | Gynecology | Uterine | Epic Dept | [facility] [address] | | | | | cancer (HCC) | | [address] | | | | | Procedures | | [address] | | | | | NE NEW | | [address] | | | | | PATIENT | | Pavilion | | | | | LEVEL V | | [facility] [place] | | | | | | | [address] | | | | | | | Phone: | | | | | | | [phone] | | | | | | | Fax: | | | | | | | [phone] | + +--------+ + + + + Encounter Details +--------+---------+ + + + | Date | Type | Department | Care Team | Description | +--------+---------+ + + + | 11/07/ | Office | [facility] | Quirino Martinez, | Cervical cancer, | | 2017 | Visit | [facility] | [address] | FIGO stage IB2 (HCC) | | | | [place] [address] | [address] | (Primary Dx) | | | | [address] | [place], [place] | | | | | Road [address] | [address] | | | | | Shubham [place], | [phone] | | | | | [place] [address] | | | | | | [phone] | | | +--------+---------+ + + + [...] will be referred to Dr.Bryce Mackey in [facility] p) [phone]. You will also be referred to (or [...] - 11/07/2016 1:00 PM PDTReferral [facility]ed to [facility]. Provided pt with phone number to clinic if no contact by the end of the week. Paris Moses MD - 11/07/2016 1:00 PM PDTFormatting of this note may be different fr om the original. Display Progress Note in MyChart: No [facility] THERAPIST ONCOLOGY CONSULTATION Dayna Larios 1975 11/07/2016 Referring [...] cancer. She was most recently admitted to [facility] from 09/20-09/22 for pulmonary embol ism and vaginal bleeding felt to be 2/2 cervical cancer. Per chart review, she had been diag nosed with PE in [place] on 09/14 but left AMA and was hospitalized at [facility] on 09/15-09/19 whe re she was started on rivoroxaban. She then represented to [facility] on 09/30 and was restarte d on Xarelto at that time. School Laboratory Technician Onc consultation was performed at [facility] in the setting of necrotic cervical [...] history (as compiled per Dr. Sterling at [facility]): 2009: HSIL pap 2009: Clinic note: s/p CKC in 01/2010, discrepancy in pathology report, at least stage I AI. She was seen and evaluated by Dr. Navarro School Laboratory Technician/Onc. His recommendation is to repeat wide CK C cervical biopsy and send specimen to [facility]. 2011: Clinic note: Patient understands that she has no showed for surgery to cure her cervical cancer. She wants a 3rd opinion . 2013: Clinic Note: Cone biopsies done last @ [facility] 10/13/12. Histology CIN3 with endocervic al gland [...] EBRT Recommend evaluation by radiation oncology in [place], [place] given distance from patient's home in [place] Chemotherapy with Dr. Murillo Continue Xarelto as prescribed for bilateral PE RTC in 2 months for follow up Instructed to quit smoking - eRx given for nicotine patch eRX given for oxycodone, Miralax. This patient was seen and discussed with Dr. Serafin Ventura. Paris Moses MD PGY-2, Obstetrics & Gynecology Pager [phone] I saw and evaluated the patient on [...] Rd | | | | | | [place], [place] | | | | | | [address] | | | | | | [phone] | | | | | | | | +--------+---------+ + + + as of this encounter Visit Diagnoses + + | Diagnosis | + + | Cervical cancer, FIGO stage IB2 (HCC) - Primary | + +
--- OUTSIDE RECORDS SUMMARY | ~2017-01-14 | XMS | Clinical Summary ---
Demographics + + + | Address | [address] | | | [place] [address] | + + + | Home Phone | | + + + | Preferred Language | Unknown | + + + | Marital Status | Single | + + + | Mormonism Affiliation | Unknown | + + + [...] Team Providers + +------+ + | Care Offender Employment Specialist Name | Role | Phone | + +------+ + | No Pcp Per Patient | PP | Unavailable | + +------+ + Source Comments FARRUKH is fully live on both [facility] and [facility] InPatient.[facility] Allergies + + + + [...] + + + + | 10/30/ | Esthetician Permanent Makeup Artist | | Quirino Martinez, | Malignant neoplasm [...] Rd | | | | | | [place], [place] | | | | | | [address] | | | | | | [phone] | | | | | | | [...] Materials | | | | Received:Referring Institution: [facility] | | | | [place], [place] [address]Foulqxb | | | | Accession Number: [id number] | | | | Collection Date: | | | | 09/21/2016Sublabeled H&E | | | | A to | | | | B 2 | | | | Final Pathologic Diagnosis:A. Cervix, | | | | biopsy ([id number]; 09/21/16, sublabeled | | | | A): - Invasive well differentiated | | | | adenocarcinoma. B. Endocervix, | | | | curettage ([id number]; 09/21/16, sublabeled | | | | B):- Invasive well differentiated | | | | adenocarcinoma. Case reviewed | | | | by:Parish iKser M.D./ Surgical Pathology | | | | [...] Laboratory | + + + | | [facility] DEPARTMENT OF PATHOLOGY [address] [facility] | | | [place] [address] | + + + from Last 3 Months
--- OUTSIDE RECORDS SUMMARY | ~2017-01-14 | XMS | Encounter Summary ---
Demographics + + + | Address | [address] | | | [place] [address] | + + + | Home Phone | | + + + | Preferred Language | Unknown | + + + | Marital Status | Single | + + + | Lutheran Affiliation | Unknown | + + + | Race | White | + + + | Ethnic Group | Not or | + + + Author + + + | Author | [facility] | + + + | Organization | [facility] | + + + | Address | Unknown | + + + | Phone | Unavailable | + + + Support +------+ +---------+ + | Name | Relationship | Address | Phone | +------+ +---------+ + ECON | Unknown | | +------+ +---------+ + Care Team Providers + +------+ + | Care Beef Pusher Name | Role | Phone | [...] | | | | | | Road [place], [place] | | | | | | [address] | | | +--------+ + + + [...] Rd | | | | | | [place], [place] | | | | | | [address] | | | | | | [phone] | | | | | | | [...] [facility] | | | | [place], [place] [address]Asjbiys | | | | Accession Number: [id number] | | | | Collection Date: | | | | 09/21/2016Sublabeled H&E | | | | A to | | | | B 2 | | | | Final Pathologic Diagnosis:A. Cervix, | | | | biopsy ([id number]; 09/21/16, sublabeled | | | | A): - Invasive well differentiated | | | | adenocarcinoma. B. Endocervix, | | | | curettage ([id number]; 09/21/16, sublabeled | | | | B):- [...] Laboratory | + + + | | [facility] [address] [facility] | | | [place] [address] | + + + in this encounter Visit Diagnoses Not on filein this encounter Admitting Diagnoses + + | Diagnosis | + + | Malignant neoplasm of cervix uteri, unspecified | + +"
--- OUTSIDE RECORDS SUMMARY | ~2017-01-14 | XMS | Encounter Summary ---
Demographics + + + | Address | [address] | | | [place] [address] | + + + | Home Phone | | + + + | Preferred Language | Unknown | + + + | Marital Status | Single | + + + | Temple Affiliation | Unknown | + + + [...] Team Providers + +------+ + | Care Top Tile Decorator Name | Role | Phone | + +------+ + | No Pcp Per Patient | PCP | Unavailable | + +------+ + Encounter Details +--------+ + + + + | Date | Type | Department | Care Team | Description | +--------+ + + + + | 10/30/ | Briquette Operator | [facility] | Quirino Martinez, | Malignant neoplasm | | 2017 | | [facility] | [address] | of cervix, | | | | Pavilion [address] | unspecified site | | | | [address] | [place], [place] | ([facility]) (Primary Dx) | | | | [address] | [address] | | | | | [place], | [phone] | | | | | [place] [address] | | | | | | [phone] | | | +--------+ + + + [...] [address] | | | | | | [facility] | | | | | | [place], [place] | | | | | | [address] | | | | | | [phone] | | | | | | | [...] | + + + | | [facility] DEPARTMENT OF PATHOLOGY [address] | | | [place] [address] | + + + in this encounter Visit Diagnoses + + | Diagnosis | + + | Malignant neoplasm of cervix, unspecified site (HCC) - Primary | + +"
--- OUTSIDE RECORDS SUMMARY | ~2017-01-14 | XMS | Encounter Summary ---
Demographics + + + | Address | [address] | | | [place] [address] | + + + | Home Phone [...] Team Providers + +------+ + | Care Editor Department Name | Role | Phone | + [...] | | 2016 | | [facility] | [address] | Michelle) | | | | [place] [address] | | | | | [address] | [place], [place] | | | | | [address] | [address] | | | | | [place], | [phone] | | | | | [place] [address] | | | | | | [phone] | | | +--------+ + + + [...] Rd | | | | | | [facility] [place] | | | | | | [address] | | | | | | [phone] | | | | | | | | +--------+---------+ + + + as of this encounter Visit Diagnoses + + | Diagnosis | + + | Malignant neoplasm of cervix, unspecified site (HCC) - Primary | + +"
[~2017-01-14 17:14] MED LIST changes: -AUGMENTIN 875-1 EACH PO; -CIPRO500 MG PO; -DIFLUCAN100 MG PO; -FLEET ENEMA133 ML PR; -LOVENOX80 MG/0.8 SUB-Q; -MACROBID 100 M100 MG PO; -SENNA8.6 MG PO
[2017-01-14] MEDS ORDERED: OXYCODONE HCL15 MG PO (17:31)
[2017-01-14] MEDS ORDERED: DIFLUCAN100 MG PO (17:32)
[2017-01-14] MEDS ORDERED: FLEET ENEMA133 ML PR (18:41)
[2017-01-31] MEDS ORDERED: LOVENOX80 MG/0.8 SUB-Q (04:22)
[2017-02-17] MEDS ORDERED: AUGMENTIN 875-1 EACH PO (04:25)
== END 2017-01-14 19:26 | disposition home or self-care (01) ==
LOC: ED 17:14
DX: K59.00 Constipation, unspecified (principal); Z85.41 Personal history of malignant neoplasm of cervix uteri; Z85.42 Personal history of malignant neoplasm of other parts of uterus; Z86.711 Personal history of pulmonary embolism; F17.200 Nicotine dependence, unspecified, uncomplicated; Z88.2 Allergy status to sulfonamides; Z88.1 Allergy status to other antibiotic agents; Z91.038 Other insect allergy status; Z79.52 Long term (current) use of systemic steroids
CPT/HCPCS: 74000; 80053; 83690; 85025; 96374; 96375; 99283; J1885; J2405; J7030

== ENCOUNTER 2017-01-20 20:29 | Emergency (ER) | payer OTHER ==
[~2017-01-20] VITALS: Ht 165.1 cm; Wt 54.0 kg
[~2017-01-20 20:29] MED LIST changes: -AUGMENTIN 875-1 EACH PO; -CIPRO500 MG PO; -LOVENOX80 MG/0.8 SUB-Q; -MACROBID 100 M100 MG PO; -SENNA8.6 MG PO
[2017-01-20] MEDS ORDERED: SENNA8.6 MG PO (20:40)
--- OUTSIDE RECORDS SUMMARY | 2017-01-20 20:46 | XMS | Clinical Summary ---
Demographics + + + | Address | [address] | | | [place] [address] | + + + | Home Phone | | + + + | Preferred Language | Unknown | + + + | Marital Status | Single | + + + | Hindu Affiliation | Unknown | + + + [...] Team Providers + +------+ + | Care Trophy Assembler Name | Role | Phone | + +------+ + | No Pcp Per Patient | PP | Unavailable | + +------+ + Source Comments FARRUKH is fully live on both [facility] Amb[facility] and [facility] InPatient.[facility] Allergies + + + + + + [...] + + + + | 10/30/ | Gas Plant Specialist | | Quirino Martinez, | Malignant neoplasm [...] [address] | | | | | | [place], [place] | | | | | | [address] | | | | | | [phone] | | | | | | | [...] Materials | | | | Received:Referring Institution: [facility] | | | | [place], [place] [id number] | | | | Accession Number: [id number] | | | | Collection Date: | | | | 09/21/2016Sublabeled H&E | | | | A to | | | | B 2 | | | | Final Pathologic Diagnosis:A. Cervix, | | | | biopsy ([id number]; 09/21/16, sublabeled | | | | A): - Invasive well differentiated | | | | adenocarcinoma. B. Endocervix, | | | | curettage ([id number]; 09/21/16, sublabeled | | | | B):- [...] Laboratory | + + + | | [facility] DEPARTMENT OF PATHOLOGY [address] | | | [place] [address] | + + + from Last 3 Months
--- OUTSIDE RECORDS SUMMARY | 2017-01-20 20:46 | XMS | Encounter Summary ---
Demographics + + + | Address | [address] | | | [place] [address] | + + + | Home Phone | | + + + | Preferred Language | Unknown | + + + | Marital Status | Single | + + + | Scientology Affiliation | Unknown | + + + | Race | White | + + + | Ethnic Group | Not or | + + + Author + + + | Author | [facility] | + + + | Organization | [facility] | + + + | Address | Unknown | + + + | Phone | Unavailable | + + + Support +------+ +---------+ + | Name | Relationship | Address | Phone | +------+ +---------+ + ECON | Unknown | | +------+ +---------+ + Care Team Providers + +------+ + | Care Remote Encoding Center Manager Name | Role | Phone | + [...] [facility] | Quirino Martinez, | Prior Authorization | | 2016 | | [facility] | [address] | Request - Medication | | | | [address] | [address] | | | | | [address] | [place], [place] | | | | | [place] | [address] | | | | | Shubham Follett, | [phone] | | | | | [place] [address] | | | | | | [phone] | | | +--------+ + + + [...] Rd | | | | | | [place], [place] | | | | | | [address] | | | | | | [phone] | | | | | | | | +--------+---------+ + + + as of this encounter Visit Diagnoses Not on filein this encounter"
--- OUTSIDE RECORDS SUMMARY | 2017-01-20 20:46 | XMS | Encounter Summary ---
Demographics + + + | Address | [address] | | | [place] [address] | + + + | Home Phone | | + + + | Preferred Language | Unknown | + + + | Marital Status | Single | + + + | Orthodoxy Affiliation | Unknown | + + + | Race | White | + + + | Ethnic Group | Not or | + + + Author + + + | Author | [facility] | + + + | Organization | [facility] | + + + | Address | Unknown | + + + | Phone | Unavailable | + + + Support +------+ +---------+ + | Name | Relationship | Address | Phone | +------+ +---------+ + ECON | Unknown | | +------+ +---------+ + Care Team Providers + +------+ + | Care Campus Recruiting Coordinator Name | Role | Phone | + +------+ + | No Pcp Per Patient | PCP | Unavailable | + +------+ + Encounter Details +--------+ + + + + | Date | Type | Department | Care Team | Description | +--------+ + + + + | 10/30/ | Medicine Tech | [facility] | Quirino Martinez, | Malignant neoplasm | | 2017 | | [facility] | [address] | of cervix, | | | | Pavilion [address] | unspecified site | | | | [address] | [place], [place] | ([facility]) (Primary Dx) | | | | [address] | [address] | | | | | [place], | [phone] | | | | | [place] [address] | | | | | | [phone] | | | +--------+ + + + [...] Eric | | | | | | [facility] | | | | | | [place], [place] | | | | | | [address] | | | | | | [phone] | | | | | | | [...] Laboratory | + + + | | [facility] DEPARTMENT OF PATHOLOGY [address] | | | [place] [address] | + + + in this encounter Visit Diagnoses + + | Diagnosis | + + | Malignant neoplasm of cervix, unspecified site (HCC) - Primary | + +"
--- OUTSIDE RECORDS SUMMARY | 2017-01-20 20:46 | XMS | Encounter Summary ---
Demographics + + + | Address | [address] | | | [place] [address] | + + + | Home Phone | | + + + | Preferred Language | Unknown | + + + | Marital Status | Single | + + + | Scientologist Affiliation | Unknown | + + + | Race | White | + + + | Ethnic Group | Not or | + + + Author + + + | Author | [facility] | + + + | Organization | [facility] | + + + | Address | Unknown | + + + | Phone | Unavailable | + + + Support +------+ +---------+ + | Name | Relationship | Address | Phone | +------+ +---------+ + ECON | Unknown | | +------+ +---------+ + Care Team Providers + +------+ + | Care Remediation Consultant Name | Role | Phone | + +------+ + | No Pcp Per Patient | PCP | Unavailable | + +------+ + Reason for Visit + + + | Reason | Comments | + + + | Refill Request | | + + + Encounter Details +--------+ + + + + | Date | Type | Department | Care Team | Description | +--------+ + + + + | 11/30/ | Telephone | [facility] | Quirino Martinez, | Refill Request | | 2017 | | [facility] | [address] | | | | | [address] [address] | | | | | [address] | [place], [place] | | | | | [address] | [address] | | | | | Shubham Giff[place], | [phone] | | | | | [place] [address] | | | | | | [phone] | | | +--------+ + + + [...] Rd | | | | | | [place], [place] | | | | | | [address] | | | | | | [phone] | | | | | | | | +--------+---------+ + + + as of this encounter Visit Diagnoses Not on filein this encounter"
--- OUTSIDE RECORDS SUMMARY | 2017-01-20 20:46 | XMS | Encounter Summary ---
Demographics + + + | Address | [address] | | | [place] [address] | + + + | Home Phone | | + + + | Preferred Language | Unknown | + + + | Marital Status | Single | + + + | Worship Affiliation | Unknown | + + + | Race | White | + + + | Ethnic Group | Not or | + + + Author + + + | Author | [facility] | + + + | Organization | [facility] | + + + | Address | Unknown | + + + | Phone | Unavailable | + + + Support +------+ +---------+ + | Name | Relationship | Address | Phone | +------+ +---------+ + ECON | Unknown | | +------+ +---------+ + Care Team Providers + +------+ + | Care New Order Clerk Name | Role | Phone | + [...] | | | | | | Road [place], [place] | | | | | | [address] | | | +--------+ + + + [...] Rd | | | | | | [place], [place] | | | | | | [address] | | | | | | [phone] | | | | | | | [...] Materials | | | | Received:Referring Institution: [employer] | | | | [place], [place] [address] | | | | Accession Number: [id number] | | | | Collection Date: | | | | 09/21/2016Sublabeled H&E | | | | A to | | | | B 2 | | | | Final Pathologic Diagnosis:A. Cervix, | | | | biopsy ([id number]; 09/21/16, sublabeled | | | | A): - Invasive well differentiated | | | | adenocarcinoma. B. Endocervix, | | | | curettage ([id number]; 09/21/16, sublabeled | | | | B):- [...] Laboratory | + + + | | [facility] [address] | | | [place] [address] | + + + in this encounter Visit Diagnoses Not on filein this encounter Admitting Diagnoses + + | Diagnosis | + + | Malignant neoplasm of cervix uteri, unspecified | + +"
--- OUTSIDE RECORDS SUMMARY | 2017-01-20 20:46 | XMS | Encounter Summary ---
Demographics + + + | Address | [address] | | | [place] [address] | + + + | Home Phone | | + + + | Preferred Language | Unknown | + + + | Marital Status | Single | + + + | Mormon Affiliation | Unknown | + + + | Race | White | + + + | Ethnic Group | Not or | + + + Author + + + | Author | [facility] | + + + | Organization | [facility] | + + + | Address | Unknown | + + + | Phone | Unavailable | + + + Support +------+ +---------+ + | Name | Relationship | Address | Phone | +------+ +---------+ + ECON | Unknown | | +------+ +---------+ + Care Team Providers + +------+ + | Care Rehab Spec Name | Role | Phone | + +------+ + | No Pcp Per Patient | PCP | Unavailable | + +------+ + Reason for Referral Consultation (Urgent) + +--------+ + + + + | Status | Reason | Specialty | Diagnoses / | Referred By | Referred To | | | | | Procedures | Contact | Contact | + +--------+ + + + + | Authorized | | | Diagnoses | Degeest, | | | | | | Cervical | MD Quirino | Kelli, | | | | | cancer, FIGO | [address] | Tad Mejia MD | | | | | stage IB2 | [address] | [facility] | | | | | (HCC) | [address] | Regional | | | | | Procedures | [place], [place] | Cancer Cntr | | | | | CONSULT TO | [address] | [address] | | | | | NON - [facility] | Phone: | Marti Kidd, | | | | | PROVIDER | [phone] | [place] [address] | | | | | | Fax: | Phone: | | | | | | [phone] | [phone] | | | | | | | Fax: | | | | | | | [phone] | + +--------+ + + + + Consultation (Urgent) + +--------+ + + + + | Status | Reason | Specialty | Diagnoses / | Referred By | Referred To | | | | | Procedures | Contact | Contact | + +--------+ + + + + | Authorized | | Non [facility] | Diagnoses | Coryt, | Jorge Mackey | | | | Department | Cervical | MD Quirino | C, DO | | | | | cancer, FIGO | [address] | | | | | stage IB2 | [address] | [facility] | | | | | (HCC) | [address] | [place] [address] | | | | | Procedures | [place], [place] | [address] | | | | | CONSULT TO | [address] | Marti Kidd, | | | | | NON - [facility] | Phone: | [place] [address] | | | | | PROVIDER | [phone] | Phone: | | | | | | Fax: | [phone] | | | | | | [phone] | Fax: | | | | | | | [phone] | + +--------+ + + + + Reason for Visit + + + | Reason | Comments | + + + | New patient | | | consultation | | + + + Consultation (Routine) + +--------+ + + + + | Status | Reason | Specialty | Diagnoses / | Referred By | Referred To | | | | | Procedures | Contact | Contact | + +--------+ + + + + | Authorized | | Obstetrics & | Diagnoses | Non-[facility] | [facility] | | | | Gynecology | Uterine | Epic Dept | [facility] [address] | | | | | cancer (HCC) | | [address] | | | | | Procedures | | [address] | | | | | [place] | | [address] | | | | | PATIENT | | Pavilion | | | | | LEV[address] V | | [facility] [place] | | | | | | | [address] | | | | | | | Phone: | | | | | | | [phone] | | | | | | | Fax: | | | | | | | [phone] | + +--------+ + + + + Encounter Details +--------+---------+ + + + | Date | Type | Department | Care Team | Description | +--------+---------+ + + + | 11/07/ | Office | [facility] | Quirino Martinez, | Cervical cancer, | | 2017 | Visit | [facility] | [address] | FIGO stage IB2 (HCC) | | | | Shubham [address] | [address] | (Primary Dx) | | | | [address] | [place], [place] | | | | | [address] | [address] | | | | | Shubham [place], | [phone] | | | | | [place] [address] | | | | | | [phone] | | | +--------+---------+ + + + Social History + + [...] + + + as of this encounter Last Filed Vital Signs + + + [...] PM PDT | + + + + in this encounter Instructions Patient Instructions - Pooja Flowers RN - 11/07/2016 1:00 PM PDTYou will be referred to Dr.Bryce Mackey in [facility] for Radiation Oncology p) [phone]. You will also be referred to (or one of his partners) for chemotherapy. You should be called to schedule an appointment with them, if not please call them Please see again in about 8 weeks. Call our office if you need to reschedule the appointment that is currently scheduled. in this encounter Progress Notes Pooja Flowers RN - 11/07/2016 1:00 PM PDTReferral faxed to [facility]. Provided pt with phone number to clinic if no contact by the end of the week. Paris Moses MD - 11/07/2016 1:00 PM PDTFormatting of this note may be different fr om the original. 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 Per chart review, she has a history of cervical dysplasia, specifically JENNIFER 3 with endoc ervical gland involvement , possible Stage IAI cervical cancer s/p several cone biopsies w ho was subsequently lost to follow up in 2012. Per report, she was initially afraid to pursu e surgery for her cancer, but now feels ready. Has been seen since by different providers wh o have been telling her conflicting messages about whether or not she still has cancer. She was most recently admitted to [facility] from 09/20-09/22 for pulmonary embol ism and vaginal bleeding felt to be 2/2 cervical cancer. Per chart review, she had been diag nosed with PE in [place] on 09/14 but left AMA and was hospitalized at [facility] on 09/15-09/19 whe re she was started on rivoroxaban. She then represented to [facility] on 09/30 and was restarte d on Xarelto at that time. [facility] consultation was performed at [facility] in the setting of necrotic cervical mass and enlarged uterus concerning for invasive cervical disease. Per the ir exam, there was clearly visible cervical mass with vaginal wall involvement, unable to pa ss EMB pipelle. Three biopsies were taken that showed invasive endocervical adenocarcinoma. Today, she reports that in 2010 she was diagnosed with cervical cancer and that it was meta stasizing. She states that her doctor at that time recommended a full hysterectomy but she d eclined because she "wasn't ready to give up my lady parts". She notes that she has been hav ing vaginal bleeding since that time; this has been progressively worsening and she has blee ding almost every day. Will soak through a whole pack of 24 pads in a couple of days, also p asses large blood clots. Has been taking the Xarelto regularly. Denies CP or SOB currently, though reports some L si ded chest pain yesterday. Intermittent pleuritic chest pain. Reports appetite has been "non- existent" for the past 1-2 months, is able to eat. Constant nausea, sometimes vomits - espec ially when defecating. Endorses constipation, states she has a BM once every other week. Nikunj ing sennakot and colace and a laxative, nothing helping. States she has to force urination, difficulty with initiating a stream of urine. Denies dysuria. Energy has been poor, feels ex hausted and tired after minimal exertion. Lost 6 lbs in <1 week unintentionally. Does endors e some R-sided hip pain when lying down. Cancer history (as compiled per Dr. Sterling at [facility]): 2009: HSIL pap 2009: Clinic note: s/p CKC in 01/2010, discrepancy in pathology report, at least stage I AI. She was seen and evaluated by Dr. Navarro Hose Mender/Onc. His recommendation is to repeat wide CK C cervical biopsy and send specimen to [facility]. 2011: Clinic note: Patient understands that she has no showed for surgery to cure her cervical cancer. She wants a 3rd opinion . 2013: Clinic Note: Cone biopsies done last @ [facility] 10/13/12. Histology CIN3 with endocervic al gland involvement and CIN1. Extends focally to margins, no endocervical adenocarcinoma or AIS seen. Was scheduled for [facility], but did not keep [place] appointments. No f/u since. 2014: HSIL, HPV neg. PAST MEDICAL HISTORY: Past Medical History: Diagnosis Date Anemia Gallstones GERD (gastroesophageal reflux disease) History of stomach ulcers Kidney stones Pulmonary embolism (HCC) Vaginal bleeding PAST SURGICAL HISTORY: Past Surgical History Procedure Laterality Date Cold knife cone biopsy of cervix OB HISTORY OB History Para Term AB Living 8 4 4 4 SAB TAB Ectopic Multiple Live Births 4 # Outcome Date GA Lbr Roberto Carlos/2nd Weight Sex Delivery Anes PTL Lv 8 AB 7 AB 6 AB 5 AB 4 Term 3 Term 2 Term 1 Term MEDICATIONS: Current Medication List Name Sig DOXYCYCLINE HYCLATE 100 MG TABLET Take 100 mg by mouth every twelve hours. (Pharmacist to s ubstitute salt form as needed) OXYCODONE-ACETAMINOPHEN 5 MG-325 MG TABLET Take 1 tablet by mouth every four hours as neede d. Not to exceed 10 tablets per any 24 hour period. RIVAROXABAN 20 MG TABLET Take by mouth. ALLERGIES: Allergies Allergen Reactions Bee Venom Protein (Honey Bee) Anaphylaxis Codeine Nausea and Vomiting Erythromycin Nausea and Vomiting and Edema Sulfa (Sulfonamide Antibiotics) Hives, Pruritus and Rash FAMILY HISTORY: Maternal aunt with breast cancer and ovarian cancer, not sure what age. Mother with uterine cancer in late 20s Does not know father's side of family history Denies family hx cervical, colon cancer. 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 Body surface area is 1.57 meters squared. General: no acute distress, sitting comfortably in chair HEENT: normal Cardiovascular: Regular rate and rythm, no murmur or gallop Respiratory: Clear to auscultation, no added sounds Abdomen: Not distended. Tenderness to palpation diffusely over abdomen. No ascites. No palp able mass. Extremities: normal range of motion. No lower extremity edema. No venous stasis or varicose veins Pelvic exam: vulva normal, vagina normal. Barrel-shaped cervix with 6cm palpable mass. No p arametrial involvement on bimanual exam, uterus enlarged. Rectovaginal exam: Patient declined. STUDIES REVIEWED Surg Path 09/21: DIAGNOSIS A. CERVIX (BIOPSY): - INVASIVE ENDOCERVICAL ADENOCARCINOMA, WELL-DIFFERENTIATED B. ENDOCERVIX (CURETTAGE): - INVASIVE ENDOCERVICAL ADENOCARCINOMA, WELL-DIFFERENTIATED CT A/P 09/20: FINDINGS:A review of multiple low CT images of the abdomen and pelvis, acquired on 09/20/2016, demonstrates an enlarged uterus containing a mixed fluid and soft tissue density. This may represent blood within the endometrial cavity. Endometrial cavity measures 6.8 cm in greatest axial diameter. There appears to be a peripherally enhancing necrotic mass in the region of the cervix. A physiologic volume of fluid is noted in the cul-de-sac. Small round well-defined areas of decreased enhancement in both kidneys are too small to be characterized by CT but are statistically likely to represent benign entities. Areas of scarring are present in both kidneys. No evidence of mass or adenopathy is otherwise seen. No dilated loops of bowel are identified. There is nonfilling of what appears to been internal iliac vein branch on the right. This may represent thrombosis. IMPRESSION: 1. ENLARGED UTERUS WITH WHAT APPEARS TO BE HEMORRHAGE IN THE ENDOMETRIAL CAVITY. THERE MAY BE A LEAD OBSTRUCTION BY A NECROTIC CERVICAL MASS. 2. POSSIBLE LEFT PELVIC VEIN THROMBOSIS ON THE RIGHT CTA Chest 09/20/16 IMPRESSION: 1. Multifocal acute pulmonary emboli. While the main pulmonary artery is overall not enlarg ed, it is greater than the ascending aorta and this suggests there is a component of right h eart strain. Accompanying areas of pulmonary infarction within the right lung. 2. Nonspecific small pulmonary nodules. As the patient has a history of cervical cancer, th is could reflect metastasis. 3. Please see separate CT of abdomen/pelvis for further discussion. ECHO 09/20 SUMMARY: 1. Small pericardial effusion. 2. The left ventricular diastolic function is normal. 3. The left atrium is normal in size and structure. 4. The right atrium is normal in size and structure. 5. Left ventricular ejection fraction, by Loya's Biplane, is normal at 63 %. ASSESSMENT: At least Stage IB2 cervical adenocarcinoma with bulky central lesion Recent bilateral pulmonary emboli with pulmonary infarct, right pleural effusion. Anticoagu lated with Xarelto 0.5 PPD smoker Hx of meth use, quit in 2007, no history of HIV Pelvic pain PLAN: Recommend pelvic RT/brachytherapy with weekly Cisplatin during EBRT Recommend evaluation by radiation oncology in [place], [place] given distance from patient's home in [place] Chemotherapy with Dr. Murillo Continue Xarelto as prescribed for bilateral PE RTC in 2 months for follow up Instructed to quit smoking - eRx given for nicotine patch eRX given for oxycodone, Miralax. This patient was seen and discussed with Dr. Serafin Ventura. Paris Moses MD PGY-2, Obstetrics & Gynecology Pager [phone] I saw and evaluated the patient on 11/07/2016. I agree with the findings and the plan of ca re as documented in the resident s note. Serafin Ventura M.D. Division of Gynecologic Oncology Department of Obstetrics and Gynecology in this encounter Plan of Treatment +--------+---------+ + + + | Date | Type | Specialty | Care Team | Description | +--------+---------+ + + + | 01/23/ | Office | Obstetrics & | Quirino Martinez, | | | 2017 | Visit | Gynecology | [address] | | | | | | [address] | | | | | | [place], [place] | | | | | | [address] | | | | | | [phone] | | | | | | | | +--------+---------+ + + + as of this encounter Visit Diagnoses + + | Diagnosis | + + | Cervical cancer, FIGO stage IB2 (HCC) - Primary | + +
--- OUTSIDE RECORDS SUMMARY | 2017-01-20 20:46 | XMS | Clinical Summary ---
Demographics + + + | Address | [address] | | | [place] [address] | + + + | Home Phone | | + + + | Preferred Language | Unknown | + + + | Marital Status | Single | + + + | Nondenominational Affiliation | Unknown | + + + [...] Team Providers + +------+ + | Care Sas Programmer Analyst Name | Role | Phone | + +------+ + | No Pcp Per Patient | PP | Unavailable | + +------+ + Source Comments [facility] is fully live on both [facility] Amb[facility] and [facility] InPatient[facility] Allergies + + + + + [...] + + + + | 10/30/ | 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 Cervix, | | | | biopsy ([id number]; 09/21/16, sublabeled | | | | A): - Invasive well differentiated | | | | adenocarcinoma. B. Endocervix, | | | | curettage ([id number]; 09/21/16, sublabeled | | | | B):- [...] Laboratory | + + + | | [facility] DEPARTMENT OF PATHOLOGY [address] | | | [place] [address] | + + + from Last 3 Months
--- OUTSIDE RECORDS SUMMARY | 2017-01-20 20:46 | XMS | Encounter Summary ---
Demographics + + + | Address | [address] | | | [place] [address] | + + + | Home Phone | | + + + | Preferred Language | Unknown | + + + | Marital Status | Single | + + + | Taoism Affiliation | Unknown | + + + | Race | White | + + + | Ethnic Group | Not or | + + + Author + + + | Author | [facility] | + + + | Organization | [facility] | + + + | Address | Unknown | + + + | Phone | Unavailable | + + + Support +------+ +---------+ + | Name | Relationship | Address | Phone | +------+ +---------+ + ECON | Unknown | | +------+ +---------+ + Care Team Providers + +------+ + | Care Pharmacy Order Entry Technician Name | Role | Phone | + +------+ + | No Pcp Per Patient | PCP | Unavailable | + +------+ + Encounter Details +--------+ + + + + | Date | Type | Department | Care Team | Description | +--------+ + + + + | 10/31/ | Hospital | LAB SURGICAL | | | | 2016 | Encounter | PATHOLOGY [address] | | | | [address] | | | | | | Road [place], [place] | | | | | | [address] | | | +--------+ + + + [...] | 2016 | Visit | Gynecology | MD Benigno Reyes | | | | | | [address] | | | | | | [place], [place] | | | | | | [address] | | | | | | [phone] | | | | | | | | +--------+---------+ + + + as of this encounter Visit Diagnoses Not on filein this encounter Admitting Diagnoses + + | Diagnosis | + + | Malignant neoplasm of cervix uteri, unspecified | + +"
--- OUTSIDE RECORDS SUMMARY | 2017-01-20 20:46 | XMS | Encounter Summary ---
Demographics + + + | Address | [address] | | | [place] [address] | + + + | Home Phone | | + + + | Preferred Language | Unknown | + + + | Marital Status | Single | + + + | Faith Affiliation | Unknown | + + + | Race | White | + + + | Ethnic Group | Not or | + + + Author + + + | Author | [facility] | + + + | Organization | [facility] | + + + | Address | Unknown | + + + | Phone | Unavailable | + + + Support +------+ +---------+ + | Name | Relationship | Address | Phone | +------+ +---------+ + ECON | Unknown | | +------+ +---------+ + Care Team Providers + +------+ + | Care Spray Gun Repairer Helper Name | Role | Phone | + [...] Refill Request | | 2017 | | [facility] | [address] | | | | | Shubham [address] | | | | | [address] | [place], [place] | | | | | [address] | [address] | | | | | Shubham [place], | [phone] | | | | | [place] [address] | | | | | | [phone] | | | +--------+ + + + [...] Rd | | | | | | [place], [place] | | | | | | [address] | | | | | | [phone] | | | | | | | | +--------+---------+ + + + as of this encounter Visit Diagnoses Not on filein this encounter"
--- OUTSIDE RECORDS SUMMARY | 2017-01-20 20:47 | XMS | Encounter Summary ---
Demographics + + + | Address | [address] | | | [place] [address] | + + + | Home Phone [...] Team Providers + +------+ + | Care Fire Boat Engineer Name | Role | Phone | + [...] | | 2016 | | [facility] | [address] | Michelle) | | | | Shubham [address] | | | | | [address] | [place], [place] | | | | | [address] | [address] | | | | | Shubham [place], | [phone] | | | | | [place] [address] | | | | | | [phone] | | | +--------+ + + + [...] Rd | | | | | | [facility] [place] | | | | | | [address] | | | | | | [phone] | | | | | | | | +--------+---------+ + + + as of this encounter Visit Diagnoses + + | Diagnosis | + + | Malignant neoplasm of cervix, unspecified site (HCC) - Primary | + +"
--- OUTSIDE RECORDS SUMMARY | 2017-01-20 20:47 | XMS | Encounter Summary ---
Demographics + + + | Address | [address] | | | [place] [address] | + + + | Home Phone | | + + + | Preferred Language | Unknown | + + + | Marital Status | Single | + + + | Rastafarian Affiliation | Unknown | + + + | Race | White | + + + | Ethnic Group | Not or | + + + Author + + + | Author | [facility] | + + + | Organization | [facility] | + + + | Address | Unknown | + + + | Phone | Unavailable | + + + Support +------+ +---------+ + | Name | Relationship | Address | Phone | +------+ +---------+ + ECON | Unknown | | +------+ +---------+ + Care Team Providers + +------+ + | Care Furniture Associate Name | Role | Phone | + [...] | | | | | | Road [place], [place] | | | | | | [address] | | | +--------+ + + + [...] Rd | | | | | | [place], [place] | | | | | | [address] | | | | | | [phone] | | | | | | | [...] Materials | | | | Received:Referring Institution: [facility] | | | | [place], [place] [address] | | | | Accession Number: [id number] | | | | Collection Date: | | | | 09/21/2016Sublabeled H&E | | | | A to | | | | B 2 | | | | Final Pathologic Diagnosis:A. Cervix, | | | | biopsy ([id number]; 09/21/16, sublabeled | | | | A): - Invasive well differentiated | | | | adenocarcinoma. B. Endocervix, | | | | curettage ([id number]; 09/21/16, sublabeled | | | | B):- [...] [facility] [address] | | | [place] [address] | + + + in this encounter Visit Diagnoses Not on filein this encounter Admitting Diagnoses + + | Diagnosis | + + | Malignant neoplasm of cervix uteri, unspecified | + +"
--- OUTSIDE RECORDS SUMMARY | 2017-01-20 20:47 | XMS | Encounter Summary ---
Demographics + + + | Address | [address] | | | [place] [address] | + + + | Home Phone | | + + + | Preferred Language | Unknown | + + + | Marital Status | Single | + + + | Congregational Affiliation | Unknown | + + + | Race | White | + + + | Ethnic Group | Not or | + + + Author + + + | Author | [facility] | + + + | Organization | [facility] | + + + | Address | Unknown | + + + | Phone | Unavailable | + + + Support +------+ +---------+ + | Name | Relationship | Address | Phone | +------+ +---------+ + ECON | Unknown | | +------+ +---------+ + Care Team Providers + +------+ + | Care Worksite Wellness Practitioner Name | Role | Phone | + [...] | stage IB2 | Eric Avila | [facility] | | | | | (HCC) | [address] | Regional | | | | | Procedures | [place], [place] | Cancer Cntr | | | | | CONSULT TO | [address] | [address] | | | | | NON - [facility] | Phone: | Marti Kidd, | | | | | PROVIDER | [phone] | [place] [address] | | | | | | Fax: | Phone: | | | | | | [phone] | [phone] | | | | | | | Fax: | | | | | | | [phone] | + +--------+ + + + + [...] cancer, FIGO | [address] | | | | | stage IB2 | Eric Avila | [facility] | | | | | (HCC) | [address] | [address] | | | | | Procedures | [place], [place] | [address] | | | | | CONSULT TO | [address] | Marti Kidd, | | | | | NON - [facility] | Phone: | [place] [address] | | | | | PROVIDER | [phone] | Phone: | | | | | | Fax: | [phone] | | | | | | [phone] | Fax: | | | | | | | [phone] | + +--------+ + + + + [...] & | Diagnoses | [facility] | [facility] | | | | Gynecology | Uterine | Epic Dept | [address] | | | | | cancer (HCC) | | [address] | | | | | Procedures | | [address] | | | | | [place] NEW | | [address] | | | | | PATIENT | | Pavilion | | | | | LEVEL V | | [facility] [place] | | | | | | | [address] | | | | | | | Phone: | | | | | | | [phone] | | | | | | | Fax: | | | | | | | [phone] | + +--------+ + + + + Encounter Details +--------+---------+ + + + | Date | Type | Department | Care Team | Description | +--------+---------+ + + + | 11/07/ | Office | [facility] | Quirino Martinez, | Cervical cancer, | | 2017 | Visit | [facility] | [address] | FIGO stage IB2 (HCC) | | | | Shubham [address] | (Primary Dx) | | | | [address] | [place], [place] | | | | | Road [address] | [address] | | | | | [place], | [phone] | | | | | [place] [address] | | | | | | [phone] | | | +--------+---------+ + + + [...] will be referred to Dr.Bryce Mackey in [facility] p) [phone]. You will also be referred to (or [...] - 11/07/2016 1:00 PM PDTReferral faxed to [facility]. Provided pt with phone number to clinic if no contact by the end of the week. Paris Moses MD - 11/07/2016 1:00 PM PDTFormatting of this note may be different fr om the original. 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 She was most recently admitted to [facility] from 09/20-09/22 for pulmonary embol ism and vaginal bleeding felt to be 2/2 cervical cancer. Per chart review, she had been diag nosed with PE in [place] on 09/14 but left AMA and was hospitalized at [place] on 09/15-09/19 whe re she was started on rivoroxaban. She then represented to [facility] on 09/30 and was restarte d on Xarelto at that time. [facility] Onc consultation was performed at [facility] in the setting of necrotic cervical mass [...] history (as compiled per Dr. Sterling at [facility]): 2009: HSIL pap 2009: Clinic note: s/p CKC in 01/2010, discrepancy in pathology report, at least stage I AI. She was seen and evaluated by Dr. Navarro Launchman/Onc. His recommendation is to repeat wide CK C cervical biopsy and send specimen to [facility]. 2011: Clinic note: Patient understands that she has no showed for surgery to cure her cervical cancer. She wants a 3rd opinion . 2013: Clinic Note: Cone biopsies done last @ [facility] 10/13/12. Histology CIN3 with endocervic al [...] EBRT Recommend evaluation by radiation oncology in [place], [place] given distance from patient's home in [place] Chemotherapy with Dr. Murillo Continue Xarelto as prescribed for bilateral PE RTC in 2 months for follow up Instructed to quit smoking - eRx given for nicotine patch eRX given for oxycodone, Miralax. This patient was seen and discussed with Dr. Serafin Ventura. Paris Moses MD PGY-2, Obstetrics & Gynecology Pager [phone] I saw and evaluated the patient on [...] Rd | | | | | | [place], [place] | | | | | | [address] | | | | | | [phone] | | | | | | | | +--------+---------+ + + + as of this encounter Visit Diagnoses + + | Diagnosis | + + | Cervical cancer, FIGO stage IB2 (HCC) - Primary | + +
[2017-01-20] MEDS ORDERED: MACROBID 100 M100 MG PO (22:05)
[2017-01-31] MEDS ORDERED: LOVENOX80 MG/0.8 SUB-Q (04:22)
[2017-02-17] MEDS ORDERED: AUGMENTIN 875-1 EACH PO (04:25)
== END 2017-01-20 22:26 | disposition home or self-care (01) ==
LOC: ED 20:29
PROC: 0T9B70Z Drainage of Bladder with Drainage Device, Via Natural or Artificial Opening (ICD-10-PCS; principal; 2017-01-20)
DX: N76.0 Acute vaginitis (principal); T45.1X5A Adverse effect of antineoplastic and immunosuppressive drugs, initial encounter; F17.200 Nicotine dependence, unspecified, uncomplicated; Z87.442 Personal history of urinary calculi; Z86.711 Personal history of pulmonary embolism; Z91.048 Other nonmedicinal substance allergy status; Z88.2 Allergy status to sulfonamides; Z88.1 Allergy status to other antibiotic agents; Z88.8 Allergy status to other drugs, medicaments and biological substances; Z79.899 Other long term (current) drug therapy
CPT/HCPCS: 51702; 99283

== ENCOUNTER → 2017-01-20 | Emergency (ER) | payer OTHER ==
[~2017-01-20] VITALS: Ht 165.1 cm; Wt 54.0 kg
[~2017-01-20] MED LIST changes: +AUGMENTIN 875-1 EACH PO; +CIPRO500 MG PO; +DIFLUCAN100 MG PO; +FLEET ENEMA133 ML PR; +LOVENOX80 MG/0.8 SUB-Q; +MACROBID 100 M100 MG PO; +SENNA8.6 MG PO
--- OUTSIDE RECORDS SUMMARY | 2017-01-20 01:54 | XMS | Encounter Summary ---
Demographics + + + | Address | [address] | | | [place] [address] | + + + | Home Phone | | + + + | Preferred Language | Unknown | + + + | Marital Status | Single | + + + | Taoist Affiliation | Unknown | + + + | Race | White | + + + | Ethnic Group | Not or | + + + Author + + + | Author | [facility] | + + + | Organization | [facility] | + + + | Address | Unknown | + + + | Phone | Unavailable | + + + Support +------+ +---------+ + | Name | Relationship | Address | Phone | +------+ +---------+ + ECON | Unknown | | +------+ +---------+ + Care Team Providers + +------+ + | Care Ingot Supervisor Name | Role | Phone | + +------+ + | No Pcp Per Patient | PCP | Unavailable | + +------+ + Encounter Details +--------+ + + + + | Date | Type | Department | Care Team | Description | +--------+ + + + + | 11/02/ | Hospital | LAB SURGICAL | | | | 2016 | Encounter | PATHOLOGY [address] | | | | | | [address] | | | | | | Road [place], [place] | | | | | | [address] | | | +--------+ + + + + Social History + +-------+ +--------+------+ | Tobacco Use | Types | Packs/Day | Years | Date | | | | | Used | | + +-------+ +--------+------+ | Never Assessed | | | | | + +-------+ +--------+------+ + + + | Sex Assigned at | Date Recorded | | | | + + + | Not on file | | + + + as of this encounter Medications at Time of Discharge + + +-------+---------+ + + | Medication | Sig. | Disp. | Refills | Start | End Date | | | | | | Date | | + + +-------+---------+ + + | rivaroxaban 20 mg | Take by mouth. | | | 09/23/19 | | | oral tablet | | | | 17 | 8 | + + +-------+---------+ + + as of this encounter Plan of Treatment +--------+---------+ + + + | Date | Type | Specialty | Care Team | Description | +--------+---------+ + + + | 01/23/ | Office | Obstetrics & | Quirino Martinez, | | | 2016 | Visit | Gynecology | [address] | | | | | | [address] | | | | | | [place], [place] | | | | | | [address] | | | | | | [phone] | | | | | | | | +--------+---------+ + + + as of this encounter Results PATHOLOGY CONSULT - REVIEW OUTSIDE SLIDES (11/02/2016) + + + + | Component | Value | Ref Range | + + + + | PATHOLOGY CONSULT - | SOURCE OF SPECIMEN:A Cervix biopsy; | | | SLIDES | endocervix curettage Materials | | | | Received:Referring Institution: [facility] | | | | [place], [place] [id number] | | | | Accession Number: [id number] | | | | Collection Date: | | | | 09/21/2016Sublabeled H&E | | | | A to | | | | B 2 | | | | Final Pathologic Diagnosis:A. Cervix, | | | | biopsy ([id number]; 09/21/16, sublabeled | | | | A): - Invasive well differentiated | | | | adenocarcinoma. B. Endocervix, | | | | curettage ([id number]; 09/21/16, sublabeled | | | | B):- Invasive well differentiated | | | | adenocarcinoma. Case reviewed | | | | by:Parish Kiser M.D./ Surgical Pathology | | | | FellowBrian Dominguez M.D./ | | | | Pathologist Clinical | | | | History:History of JENNIFER of the cervix with a | | | | cervical mass and lung nodules. My | | | | electronic signature indicates that I have | | | | personally reviewed alldiagnostic slides, | | | | the gross and/or microscopic portion of | | | | thisreport and formulated the final | | | | diagnosis. Rendering | | | | Diagnostician: Brian Dominguez | | | | HenrikHematopathologistElectronically Signed | | | | 11/06/2016 2:29PM | | | |Electronically Signed 11/06/2016 2:29PM | | + + + + + + + | Specimen | Performing Laboratory | + + + | | [facility] [address] [facility] | | | [place] [address] | + + + in this encounter Visit Diagnoses Not on filein this encounter Admitting Diagnoses + + | Diagnosis | + + | Malignant neoplasm of cervix uteri, unspecified | + +"
--- OUTSIDE RECORDS SUMMARY | 2017-01-20 01:54 | XMS | Encounter Summary ---
Demographics + + + | Address | [address] | | | [place] [address] | + + + | Home Phone | | + + + | Preferred Language | Unknown | + + + | Marital Status | Single | + + + | Jew Affiliation | Unknown | + + + | Race | White | + + + | Ethnic Group | Not or | + + + Author + + + | Author | [facility] | + + + | Organization | [facility] | + + + | Address | Unknown | + + + | Phone | Unavailable | + + + Support +------+ +---------+ + | Name | Relationship | Address | Phone | +------+ +---------+ + ECON | Unknown | | +------+ +---------+ + Care Team Providers + +------+ + | Care Tube Cleaner Name | Role | Phone | + +------+ + | No Pcp Per Patient | PCP | Unavailable | + +------+ + Reason for Visit + + + | Reason | Comments | + + + | Question | Dr Martinez | + + + Encounter Details +--------+ + + + + | Date | Type | Department | Care Team | Description | +--------+ + + + + | 11/21/ | Telephone | [facility] | Quirino Martinez, | Question ( | | 2016 | | [facility] | [address] | Michelle) | | | | [place] [address] | | | | | [address] | [place], [place] | | | | | [address] | [address] | | | | | [place], | [phone] | | | | | [place] [address] | | | | | | [phone] | | | +--------+ + + + + Social History + + + +--------+------+ | Tobacco Use | Types | Packs/Day | Years | Date | | | | | Used | | + + + +--------+------+ | Current Every Day | Cigarettes | 0.5 | 24 | | | Smoker | | | | | + + + +--------+------+ + +---+---+---+ | Smokeless Tobacco: | | | | | Never Used | | | | + +---+---+---+ + + +---------+ + | Alcohol Use | Drinks/We | oz/Week | Comments | | | ek | | | + + +---------+ + | No | | | | + + +---------+ + + + + | Sex Assigned at | Date Recorded | | | | + + + | Not on file | | + + + as of this encounter Plan of Treatment +--------+---------+ + + + | Date | Type | Specialty | Care Team | Description | +--------+---------+ + + + | 01/23/ | Office | Obstetrics & | Quirino Martinez, | | | 2017 | Visit | Gynecology | [address] | | | | | | [address] | | | | | | [facility] [place] | | | | | | [address] | | | | | | [phone] | | | | | | | | +--------+---------+ + + + as of this encounter Visit Diagnoses + + | Diagnosis | + + | Malignant neoplasm of cervix, unspecified site (HCC) - Primary | + +"
--- OUTSIDE RECORDS SUMMARY | 2017-01-20 01:54 | XMS | Encounter Summary ---
Demographics + + + | Address | [address] | | | [place] [address] | + + + | Home Phone | | + + + | Preferred Language | Unknown | + + + | Marital Status | Single | + + + | Druze Affiliation | Unknown | + + + [...] Team Providers + +------+ + | Care Chemical Compounder Name | Role | Phone | + +------+ + | No Pcp Per Patient | PCP | Unavailable | + +------+ + Reason for Visit + + + | Reason | Comments | + + + | Discussion | | + + + Encounter Details +--------+ + + + + | Date | Type | Department | Care Team | Description | +--------+ + + + + | 11/30/ | Telephone | [facility] | Quirino Martinez, | Discussion | | 2017 | | [facility] [place] [facility] | [address] | | | | | [address] | | | | | [address] | [place], [place] | | | | | [address] | [address] | | | | | [place], | [phone] | | | | | [place] [address] | | | | | | [phone] | | | +--------+ + + + [...] Rd | | | | | | [place], [place] | | | | | | [address] | | | | | | [phone] | | | | | | | | +--------+---------+ + + + as of this encounter Visit Diagnoses Not on filein this encounter"
--- OUTSIDE RECORDS SUMMARY | 2017-01-20 01:54 | XMS | Encounter Summary ---
Demographics + + + | Address | [address] | | | [place] [address] | + + + | Home Phone | | + + + | Preferred Language | Unknown | + + + | Marital Status | Single | + + + | Uatsdin Affiliation | Unknown | + + + | Race | White | + + + | Ethnic Group | Not or | + + + Author + + + | Author | [facility] | + + + | Organization | [facility] | + + + | Address | Unknown | + + + | Phone | Unavailable | + + + Support +------+ +---------+ + | Name | Relationship | Address | Phone | +------+ +---------+ + ECON | Unknown | | +------+ +---------+ + Care Team Providers + +------+ + | Care Curtain Worker Name | Role | Phone | + +------+ + | No Pcp Per Patient | PCP | Unavailable | + +------+ + Encounter Details +--------+ + + + + | Date | Type | Department | Care Team | Description | +--------+ + + + + | 10/30/ | Plant Technical Specialist | [facility] | Quirino Martinez, | Malignant neoplasm | | 2017 | | [facility] | [address] | of cervix, | | | | Pavilion [address] | unspecified site | | | | [address] | [place], [place] | ([facility]) (Primary Dx) | | | | [address] | [address] | | | | | [place], | [phone] | | | | | [place] [address] | | | | | | [phone] | | | +--------+ + + + [...] | Visit | Gynecology | [address] | | | | | | [facility] | | | | | | [place], [place] | | | | | | [address] | | | | | | [phone] | | | | | | | | +--------+---------+ + + + as of this encounter Results PATHOLOGY CONSULT - REVIEW OUTSIDE SLIDES (10/31/2016) + + + + | Component | Value | Ref Range | + + + + | PATHOLOGY CONSULT - | THIS IS AN AMENDED REPORT SOURCE OF | | | SLIDES | SPECIMEN:A ErrorSOURCE OF SPECIMEN:B | | | | Error Final Pathologic | | | | Diagnosis:Amendment: This case is | | | | amended because an outside consult specimen | | | | wasmistakenly accessioned under this | | | | patient's medical record number and | | | | name.That outside consult case does not | | | | belong to Dayna Larios, date ofbirth | | | | 1975. Amendment seen by:Ernesto | | | | Abiel Magaña MD PhD / Pathologist My | | | | electronic signature indicates that I have | | | | personally reviewed alldiagnostic slides, | | | | the gross and/or microscopic portion of | | | | thisreport and formulated the final | | | | diagnosis. Electronically signed | | | | by: Ernesto Magaña M.D. | | | | Ph.D.PathologistDate Completed: 12/01/2016 | | | | 11:51AM | | | |Date Completed: 12/01/2016 11:51AM | | | | | | + + + + + + + | Specimen | Performing Laboratory | + + + | | [facility] DEPARTMENT OF PATHOLOGY [address] | | | [place] [address] | + + + in this encounter Visit Diagnoses + + | Diagnosis | + + | Malignant neoplasm of cervix, unspecified site (HCC) - Primary | + +"
--- OUTSIDE RECORDS SUMMARY | 2017-01-20 01:54 | XMS | Clinical Summary ---
Demographics + + + | Address | [address] | | | [place] [address] | + + + | Home Phone | | + + + | Preferred Language | Unknown | + + + | Marital Status | Single | + + + | Presybeterian Affiliation | Unknown | + + + | Race | White | + + + | Ethnic Group | Not or | + + + Author + + + | Author | [facility] | + + + | Organization | [facility] | + + + | Address | Unknown | + + + | Phone | Unavailable | + + + Support +------+ +---------+ + | Name | Relationship | Address | Phone | +------+ +---------+ + ECON | Unknown | | +------+ +---------+ + Care Team Providers + +------+ + | Care Patient Financial Specialist Name | Role | Phone | + +------+ + | No Pcp Per Patient | PP | Unavailable | + +------+ + Source Comments [facility]KH is fully live on both [facility] and [facility] InPatient.[facility] Allergies + + + + + + | Active Allergy | Reactions | Severity | Noted | Comments | | | | | Date | | + + + + + + | Bee Venom Protein | Anaphylaxis | High | 09/21/19 | | | (Honey Bee) | | | 17 | | + + + + + + | Codeine | Nausea and Vomiting | | 11/08/19 | | | | | | 17 | | + + + + + + | Erythromycin | Nausea and Vomiting, | | 09/21/19 | | | | Edema | | 17 | | + + + + + + | Sulfa (Sulfonamide | Hives, Pruritus, | | 09/21/19 | | | Antibiotics) | Rash | | 17 | | + + + + + + Current Medications + + +--------+---------+------+------+-------+ | Prescription | Sig. | Disp. | Refills | Star | End | Statu | | | | | | t | Date | s | | | | | | Date | | | + + +--------+---------+------+------+-------+ | rivaroxaban 20 mg | Take by mouth. | | | 09/12 | 080 | Activ | | oral tablet | | | | 03/03 | 08/01 | e | | | | | | 17 | 18 | | + + +--------+---------+------+------+-------+ | | Take 1 tablet by | | | | | Activ | | oxyCODONE-acetaminop | mouth every four | | | | | e | | hen 5-325 mg oral | hours as needed. Not | | | | | | | tablet | to exceed 10 | | | | | | | | tablets per any 24 | | | | | | | | hour period. | | | | | | + + +--------+---------+------+------+-------+ | doxycycline | Take 100 mg by mouth | | | | | Activ | | hyclate 100 mg oral | every twelve hours. | | | | | e | | tablet | (Pharmacist to | | | | | | | | substitute salt form | | | | | | | | as needed) | | | | | | + + +--------+---------+------+------+-------+ | polyethylene | Mix 1 packet and | 24 | 3 | 09/2 | | Activ | | glycol (MIRALAX) 17 | take orally once | packet | | 6/20 | | e | | gram oral powder in | daily. | | | 17 | | | | packet | | | | | | | + + +--------+---------+------+------+-------+ | nicotine 14 mg/24 | Apply 1 patch to | 21 | 1 | 09/2 | | Activ | | hr transdermal patch | skin once daily. | patch | | 6/20 | | e | | 24 hour | | | | 17 | | | + + +--------+---------+------+------+-------+ | oxyCODONE | Take 1-2 tablets by | 90 | 0 | 10/ | | Activ | | (immediate release) | mouth every six | tablet | | / | | e | | 15 mg oral | hours as needed. | | | 17 | | | | tabletIndications: | Indications: Pain | | | | | | | Pain | | | | | | | + + +--------+---------+------+------+-------+ Active Problems Not on file Encounters +--------+ + + + + | Date | Type | Specialty | Care Team | Description | +--------+ + + + + | 11/30/ | Telephone | | Quirino Martinez, | Discussion | | 2016 | | | MD | | +--------+ + + + + | 11/30/ | Telephone | | Quirino Martinez, | Refill Request | | 2016 | | | MD | | +--------+ + + + + | 11/21/ | Telephone | | Quirino Martinez, | Question (Dr | | 2016 | | | MD | Degeest) | +--------+ + + + + | 11/08/ | Telephone | | Quirino Martinez, | Prior Authorization | | 2016 | | | MD | Request - Medication | +--------+ + + + + | 11/07/ | Office | | Quirino Martinez, | Cervical cancer, | | 2016 | Visit | | MD | FIGO stage IB2 (HCC) | | | | | | (Primary Dx) | +--------+ + + + + | 11/02/ | Hospital | | | | | 2016 | Encounter | | | | +--------+ + + + + | 10/31/ | Hospital | | | | | 2016 | Encounter | | | | +--------+ + + + + | 10/30/ | Cardiovascular Surgical Tech | | Quirino Martinez, | Malignant neoplasm | | 2016 | | | MD | of cervix, | | | | | | unspecified site | | | | | | (HCC) (Primary Dx) | +--------+ + + + + from Last 3 Months Social History + + + +--------+------+ | [...] on file | | + + + Last Filed Vital Signs + + + + | Vital Sign | Reading | Time Taken | + + + + | Blood Pressure | 116/75 | 11/07/2016 1:17 PM PDT | + + + + | Pulse | 91 | 11/07/2016 1:17 PM PDT | + + + + | Temperature | 36.4 C (97.6 F) | 11/07/2016 1:17 PM PDT | + + + + | Respiratory Rate | - | - | + + + + | Oxygen Saturation | 100% | 11/07/2016 1:17 PM PDT | + + + + | Inhaled Oxygen | - | - | | Concentration | | | + + + + | Weight | 54 kg (119 lb) | 11/07/2016 1:17 PM PDT | + + + + | Height | 165.1 cm (5' 5") | 11/07/2016 1:17 PM PDT | + + + + | Body Mass Index | 19.8 | 11/07/2016 1:17 PM PDT | + + + + Plan of Treatment +--------+---------+ + + + | Date | Type | Specialty | Care Team | Description | +--------+---------+ + + + | 01/23/ | Office | | Quirino Martinez, | | | 2016 | Visit | | [address] | | | | | | [address] | | | | | | [place], [place] | | | | | | [address] | | | | | | [phone] | | | | | | | | +--------+---------+ + + + + + + + + | Health Maintenance | Due Date | Last Done | Comments | + + + + + | INFLUENZA VACCINE | | | | | (FLU SHOT) | 7 | | | + + + + + Results PATHOLOGY CONSULT - REVIEW OUTSIDE SLIDES (11/02/2016)Only the most recent of 2 results wit hin the time period is included. + + + + | Component | Value | Ref Range | + + + + | PATHOLOGY CONSULT - | SOURCE OF SPECIMEN:A Cervix biopsy; | | | SLIDES | endocervix curettage Materials | | | | Received:Referring Institution: [facility] | | | | [place], [place] [address]Kbkjump | | | | Accession Number: [id number] | | | | Collection Date: | | | | 09/21/2016Sublabeled H&E | | | | A to | | | | B 2 | | | | Final Pathologic Diagnosis:A. Cervix, | | | | biopsy ([id number]; 09/21/16, sublabeled | | | | A): - Invasive well differentiated | | | | adenocarcinoma. B. Endocervix, | | | | curettage ([id number]; 09/21/16, sublabeled | | | | B):- [...] Laboratory | + + + | | [facility] DEPARTMENT OF PATHOLOGY [address] | | | [place] [address] | + + + from Last 3 Months
--- OUTSIDE RECORDS SUMMARY | 2017-01-20 01:54 | XMS | Encounter Summary ---
Demographics + + + | Address | [address] | | | [place] [address] | + + + | Home Phone [...] Author + + + | Author | [facility] | + + + | Organization | [facility] | + + + | Address | Unknown | + + + | Phone | Unavailable | + + + Support +------+ +---------+ + | Name | Relationship | Address | Phone | +------+ +---------+ + ECON | Unknown | | +------+ +---------+ + Care Team Providers + +------+ + | Care Plate Take Out Worker Name | Role | Phone | + +------+ + | No Pcp Per Patient | PCP | Unavailable | + +------+ + Reason for Visit + + + | Reason | Comments | + + + | Prior Authorization | | | Request - Medication | | + + + Encounter Details +--------+ + + + + | Date | Type | Department | Care Team | Description | +--------+ + + + + | 11/08/ | Telephone | [facility] | Quirino Martinze, | Prior Authorization | | 2016 | | [facility] | [address] | Request - Medication | | | | [address] | [address] | | | | | [address] | [place], [place] | | | | | [address] | [address] | | | | | [place], | [phone] | | | | | [place] [address] | | | | | | [phone] | | | +--------+ + + + [...] Rd | | | | | | [place], [place] | | | | | | [address] | | | | | | [phone] | | | | | | | | +--------+---------+ + + + as of this encounter Visit Diagnoses Not on filein this encounter"
== END ==
LOC: ED 01:50
DX: N76.0 Acute vaginitis (principal); T45.1X5A Adverse effect of antineoplastic and immunosuppressive drugs, initial encounter; C53.9 Malignant neoplasm of cervix uteri, unspecified; F17.200 Nicotine dependence, unspecified, uncomplicated; Z87.442 Personal history of urinary calculi; Z86.711 Personal history of pulmonary embolism; Z91.048 Other nonmedicinal substance allergy status; Z88.2 Allergy status to sulfonamides; Z88.1 Allergy status to other antibiotic agents; Z88.8 Allergy status to other drugs, medicaments and biological substances; Z79.899 Other long term (current) drug therapy
CPT/HCPCS: 99282

== ENCOUNTER 2017-01-29 01:29 | Emergency (ER) | payer OTHER ==
[~2017-01-29] VITALS: Ht 165.1 cm; Wt 54.0 kg
[~2017-01-29 01:29] MED LIST changes: +MACROBID 100 M100 MG PO; +SENNA8.6 MG PO
[2017-01-29] MEDS ORDERED: CIPRO500 MG PO (01:52)
--- OUTSIDE RECORDS SUMMARY | 2017-01-29 03:04 | XMS | Encounter Summary ---
Demographics + + + | Address | [address] | | | [place] [address] | + + + | Home Phone [...] Author + + + | Author | [facility] | + + + | Organization | [facility] | + + + | Address | Unknown | + + + | Phone | Unavailable | + + + Support +------+ +---------+ + | Name | Relationship | Address | Phone | +------+ +---------+ + ECON | Unknown | | +------+ +---------+ + Care Team Providers + +------+ + | Care Director Global Development Name | Role | Phone | + [...] | stage IB2 | Eric Avila | [facility] | | | | | (HCC) | [address] | Regional | | | | | Procedures | [place], [place] | Cancer Cntr | | | | | CONSULT TO | [address] | [address] | | | | | NON - [facility] | Phone: | Marti Kidd, | | | | | PROVIDER | [phone] | [place] [address] | | | | | | Fax: | Phone: | | | | | | [phone] | [phone] | | | | | | | Fax: | | | | | | | [phone] | + +--------+ + + + + [...] cancer, FIGO | [address] | | | | | stage IB2 | Eric Avila | [facility] | | | | | (HCC) | [address] | [address] | | | | | Procedures | [place], [place] | [address] | | | | | CONSULT TO | [address] | Marti Kidd, | | | | | NON - [facility] | Phone: | [place] [address] | | | | | PROVIDER | [phone] | Phone: | | | | | | Fax: | [phone] | | | | | | [phone] | Fax: | | | | | | | [phone] | + +--------+ + + + + [...] & | Diagnoses | [facility] | [facility]ast[facility] | | | | Gynecology | Uterine | Epic Dept | [address] | | | | | cancer (HCC) | | [address] | | | | | Procedures | | [address] | | | | | [place] NEW | | [address] | | | | | PATIENT | | Pavilion | | | | | LEVEL V | | [facility] [place] | | | | | | | [address] | | | | | | | Phone: | | | | | | | [phone] | | | | | | | Fax: | | | | | | | [phone] | + +--------+ + + + + Encounter Details +--------+---------+ + + + | Date | Type | Department | Care Team | Description | +--------+---------+ + + + | 11/07/ | Office | [facility] | Quirino Martinez, | Cervical cancer, | | 2017 | Visit | [facility] | [address] | FIGO stage IB2 (HCC) | | | | Shubham [address] | (Primary Dx) | | | | [address] | [place], [place] | | | | | Road [address] | [address] | | | | | Shubham [place], | [phone] | | | | | [place] [address] | | | | | | [phone] | | | +--------+---------+ + + + [...] will be referred to Dr.Bryce Mackey in [facility] p) [phone]. You will also be referred to (or [...] - 11/07/2016 1:00 PM PDTReferral faxed to [facility] On[facility] On[facility]. Provided pt with phone number to clinic if no contact by the end of the week. Paris Moses MD - 11/07/2016 1:00 PM PDTFormatting of this note may be different fr om the original. 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 She was most recently admitted to [facility] from 09/20-09/22 for pulmonary embol ism and vaginal bleeding felt to be 2/2 cervical cancer. Per chart review, she had been diag nosed with PE in [place] on 09/14 but left AMA and was hospitalized at [place] on 09/15-09/19 whe re she was started on rivoroxaban. She then represented to [facility] on 09/30 and was restarte d on Xarelto at that time. Datastage Developer Onc consultation was performed at [facility] in the setting of necrotic cervical mass [...] history (as compiled per Dr. Sterling at [facility]): 2009: HSIL pap 2009: Clinic note: s/p CKC in 01/2010, discrepancy in pathology report, at least stage I AI. She was seen and evaluated by Dr. Navarro Datastage Developer/Onc. His recommendation is to repeat wide CK C cervical biopsy and send specimen to [facility]. 2011: Clinic note: Patient understands that she has no showed for surgery to cure her cervical cancer. She wants a 3rd opinion . 2013: Clinic Note: Cone biopsies done last @ [facility] 10/13/12. Histology CIN3 with endocervic al [...] EBRT Recommend evaluation by radiation oncology in [place], [place] given distance from patient's home in [place] Chemotherapy with Dr. Murillo Continue Xarelto as prescribed for bilateral PE RTC in 2 months for follow up Instructed to quit smoking - eRx given for nicotine patch eRX given for oxycodone, Miralax. This patient was seen and discussed with Dr. Serafin Ventura. Paris Moses MD PGY-2, Obstetrics & Gynecology Pager [phone] I saw and evaluated the patient on 11/07/2016. I agree with the findings and the plan of ca re as documented in the resident s note. Serafin Ventura M.D. Division of Gynecologic Oncology Department of Obstetrics and Gynecology in this encounter Plan of Treatment Not on fileas of this encounter Visit Diagnoses + + | Diagnosis | + + | Cervical cancer, FIGO stage IB2 (HCC) - Primary | + +
--- OUTSIDE RECORDS SUMMARY | 2017-01-29 03:04 | XMS | Clinical Summary ---
Demographics + + + | Address | [address] | | | [place] [address] | + + + | Home Phone [...] Team Providers + +------+ + | Care Distribution Collection Operator Name | Role | Phone | + +------+ + | No Pcp Per Patient | PP | Unavailable | + +------+ + Source Comments FARRUKH is fully live on both [facility] Ambulatory and [facility] InPatient.[facility] Allergies + + + + + + [...] + + + + | 10/30/ | Timber Surveyor | | Quirino Martinez, | Malignant neoplasm [...] + + + + Plan of Treatment + + + + + | Health [...] Materials | | | | Received:Referring Institution: [facility] | | | | [place], [place] [address] | | | | Accession Number: [id number] | | | | Collection Date: | | | | 09/21/2016Sublabeled H&E | | | | A to | | | | B 2 | | | | Final Pathologic Diagnosis:A. Cervix, | | | | biopsy ([id number]; 09/21/16, sublabeled | | | | A): - Invasive well differentiated | | | | adenocarcinoma. B. Endocervix, | | | | curettage ([id number]; 09/21/16, sublabeled | | | | B):- [...] Rendering | | | | Diagnostician: Brian Pak | | | HenrikHematopathologistElectronically Signed | | | | 11/06/2016 2:29PM | | | |Electronically Signed 11/06/2016 2:29PM | | + + + + + + + | Specimen | Performing Laboratory | + + + | | [facility] [address] | | | [place] [address] | + + + from Last 3 Months
--- OUTSIDE RECORDS SUMMARY | 2017-01-29 03:04 | XMS | Encounter Summary ---
Demographics + + + | Address | [address] | | | [place] [address] | + + + | Home Phone | | + + + | Preferred Language | Unknown | + + + | Marital Status | Single | + + + | Sabianism Affiliation | Unknown | + + + [...] Team Providers + +------+ + | Care Attorney Law Clerk Name | Role | Phone | [...] | | | | | | Road [place], [place] | | | | | | [address] | | | +--------+ + + + [...] as of this encounter Plan of Treatment Not on fileas of this encounter Visit Diagnoses Not on filein this encounter Admitting Diagnoses + + | Diagnosis | + + | Malignant neoplasm of cervix uteri, unspecified | + +"
--- OUTSIDE RECORDS SUMMARY | 2017-01-29 03:04 | XMS | Encounter Summary ---
Demographics + + + | Address | [address] | | | [place] [address] | + + + | Home Phone [...] Author + + + | Author | [facility] | + + + | Organization | [facility] | + + + | Address | Unknown | + + + | Phone | Unavailable | + + + Support +------+ +---------+ + | Name | Relationship | Address | Phone | +------+ +---------+ + ECON | Unknown | | +------+ +---------+ + Care Team Providers + +------+ + | Care Systems Lead Name | Role | Phone | + [...] | Telephone | [facility] | Qiurino Martinez, | Discussion | | 2017 | | [facility] | [address] | | | | | [address] | | | | | [address] | [place], [place] | | | | | Road [address] | [address] | | | | | Shubham [place], | [phone] | | | | | [place] [address] | | | | | | [phone] | | | +--------+ + + + [...]
[2017-01-31] MEDS ORDERED: LOVENOX80 MG/0.8 SUB-Q (04:22)
[2017-02-17] MEDS ORDERED: AUGMENTIN 875-1 EACH PO (04:25)
== END 2017-01-29 03:15 | disposition left against medical advice (07) ==
LOC: ED 01:29
DX: R30.0 Dysuria (principal); Z87.442 Personal history of urinary calculi; Z85.41 Personal history of malignant neoplasm of cervix uteri; Z86.711 Personal history of pulmonary embolism; F17.200 Nicotine dependence, unspecified, uncomplicated; Z98.890 Other specified postprocedural states; Z88.2 Allergy status to sulfonamides; Z88.1 Allergy status to other antibiotic agents; Z88.8 Allergy status to other drugs, medicaments and biological substances; Z79.51 Long term (current) use of inhaled steroids
CPT/HCPCS: 36415; 80053; 81001; 85025; 99283

== ENCOUNTER 2017-02-01 12:26 | Emergency (ER) | payer OTHER ==
[~2017-02-01] VITALS: Ht 165.1 cm; Wt 49.9 kg
--- OUTSIDE RECORDS SUMMARY | ~2017-02-01 | XMS | Encounter Summary ---
Demographics + + + | Address | [address] | | | [place] [address] | + + + | Home Phone [...] Team Providers + +------+ + | Care Cost Report Clerk Name | Role | Phone | [...] | | | | | | Road [place], [place] | | | | | | [address] | | | +--------+ + + + [...] Treatment Not on fileas of this encounter Results PATHOLOGY CONSULT - REVIEW OUTSIDE SLIDES (11/02/2016) + + + + | Component | Value | Ref Range | + + + + | PATHOLOGY CONSULT - | SOURCE OF SPECIMEN:A Cervix biopsy; | | | SLIDES | endocervix curettage Materials | | | | Received:Referring Institution: [facility] | | | | [address] | | | | Accession Number: [id number] | | | | Collection Date: | | | | 09/21/2016Sublabeled H&E | | | | A to | | | | B 2 | | | | Final Pathologic Diagnosis:A. Cervix, | | | | biopsy ([id number]; 09/21/16, sublabeled | | | | A): - Invasive well differentiated | | | | adenocarcinoma. B. Endocervix, | | | | curettage ([id number]; 09/21/16, sublabeled | | | | B):- [...] | + + + | | [facility] DEPARTMENT OF PATHOLOGY [address] | | | [place] [address] | + + + in this encounter Visit Diagnoses Not on filein this encounter Admitting Diagnoses + + | Diagnosis | + + | Malignant neoplasm of cervix uteri, unspecified | + +"
--- OUTSIDE RECORDS SUMMARY | ~2017-02-01 | XMS | Clinical Summary ---
Demographics + + + | Address | [address] | | | [place] [address] | + + + | Home Phone | | + + + | Preferred Language | Unknown | + + + | Marital Status | Single | + + + | Baptist Affiliation | Unknown | + + + [...] Team Providers + +------+ + | Care Museum Attendant Name | Role | Phone | + +------+ + | No Pcp Per Patient | PP | Unavailable | + +------+ + Source Comments FARRUKH is fully live on both [facility] Ambulatory and [facility] InPatient.[facility] Allergies + + + + + + [...] | | +--------+ + + + + from [...] Materials | | | | Received:Referring Institution: [facility] | | | | [place], [place] [address]R[place]l | | | | Accession Number: [id number] | | | | Collection Date: | | | | 09/21/2016Sublabeled H&E | | | | A to | | | | B 2 | | | | Final Pathologic Diagnosis:A. Cervix, | | | | biopsy ([id number]; 09/21/16, sublabeled | | | | A): - Invasive well differentiated | | | | adenocarcinoma. B. Endocervix, | | | | curettage ([id number]; 09/21/16, sublabeled | | | | B):- [...] Laboratory | + + + | | [facility] DEPARTMENT OF PATHOLOGY [address] | | | [place] [address] | + + + from Last 3 Months
--- OUTSIDE RECORDS SUMMARY | ~2017-02-01 | XMS | Encounter Summary ---
Demographics + + + | Address | [address] | | | [place] [address] | + + + | Home Phone | | + + + | Preferred Language | Unknown | + + + | Marital Status | Single | + + + | Bahai Affiliation | Unknown | + + + [...] Team Providers + +------+ + | Care Game Protector Name | Role | Phone | + [...] | | 2017 | | [facility] | [address] | | | | | [address] | [address] | | | | | [address] | [place], [place] | | | | | Road [address] | [address] | | | | | Shubham [place], | [phone] | | | | | [place] [address] | | | | | | [phone] | | | +--------+ + + + [...]
[~2017-02-01 12:26] MED LIST changes: +CIPRO500 MG PO; +LOVENOX80 MG/0.8 SUB-Q
[2017-02-01] MEDS ORDERED: PERCOCET 5-3251 EACH PO (14:37)
--- NOTE | 2017-02-02 19:05 | EKG ---
[facility] [address] [place], [place] [address] Signed Sinus tachycardia Otherwise normal ECG When compared with ECG of 22-OCT-2016 13:21, No significant change was found Confirmed by CROW GUPTA MD ([id number]) on 02/02/2017 7:05:27 PM Electronically Signed By: CROW GUPTA MD 02/02/17 1905 PATIENT NAME: SONYBULMAROASHLY ANDREWS Electrocardiogram DATE OF : 77 PHYSICIAN: CROW GUPTA MD REPORT #: [id number] REPORT IS CONFIDENTIAL AND NOT TO BE RELEASED WITHOUT AUTHORIZATION
[2017-02-17] MEDS ORDERED: AUGMENTIN 875-1 EACH PO (04:25)
== END 2017-02-01 14:59 | disposition home or self-care (01) ==
LOC: ED 12:26
DX: C53.9 Malignant neoplasm of cervix uteri, unspecified (principal); G89.29 Other chronic pain; I26.99 Other pulmonary embolism without acute cor pulmonale; F17.200 Nicotine dependence, unspecified, uncomplicated; Z91.030 Bee allergy status; Z88.2 Allergy status to sulfonamides; Z88.8 Allergy status to other drugs, medicaments and biological substances; Z79.899 Other long term (current) drug therapy
CPT/HCPCS: 80053; 84484; 85025; 93005; 93010; 96372; 96374; 99284; J1170; J1650

== ENCOUNTER 2017-02-05 20:18 | Emergency (ER) | payer OTHER ==
[~2017-02-05] VITALS: Ht 165.1 cm; Wt 49.9 kg
--- OUTSIDE RECORDS SUMMARY | 2017-02-05 21:13 | XMS | Clinical Summary ---
Demographics + + + | Address | [address] | | | [place] [address] | + + + | Home Phone | | + + + | Preferred Language | Unknown | + + + | Marital Status | Single | + + + | Muslim Affiliation | Unknown | + + + [...] Team Providers + +------+ + | Care It Sales Executive Name | Role | Phone | + +------+ + | No Pcp Per Patient | PP | Unavailable | + +------+ + Source Comments FARRUKH is fully live on both [facility] Ambulatory and [facility] InPatient.[facility] Allergies + + + + + [...] patch to | 21 | 1 | 09/ | | Activ | | hr transdermal patch | skin once daily. | patch | | 6/20 | | e | | 24 hour | | | | 17 | | | + + +--------+---------+------+------+-------+ | oxyCODONE | Take 1-2 tablets by | 90 | 0 | 10/ | | Activ | | (immediate release) | mouth every six | tablet | | 11/01 | | e | | 15 mg [...] | +--------+ + + + + | 02/01/ | Telephone | | Degeest, Koenraad, | Pain Management | | 2016 | | | MD | (Quirino Mratinez) | +--------+ + + + + | [...] | Quirino Martinez, | Question (Dr | 2016 | | | MD | Degdomenict) | +--------+ + + + + | 11/08/ | Telephone | | Quirino Martinez, | Prior Authorization | 2016 | | | MD | [...] | + + + + + Results Not on filefrom Last 3 Months
--- OUTSIDE RECORDS SUMMARY | 2017-02-05 21:13 | XMS | Encounter Summary ---
Demographics + + + | Address | [address] | | | [place] [address] | + + + | Home Phone [...] Author + + + | Author | [facility] | + + + | Organization | [facility] | + + + | Address | Unknown | + + + | Phone | Unavailable | + + + Support +------+ +---------+ + | Name | Relationship | Address | Phone | +------+ +---------+ + ECON | Unknown | | +------+ +---------+ + Care Team Providers + +------+ + | Care Hot Wound Spring Production Supervisor Name | Role | Phone | [...] | | 2017 | | [facility] | [address] | | | | | [address] | [address] | | | | | [address] | [place], [place] | | | | | Road [address] | [address] | | | | | Shubham [place], | [phone] | | | | | [place] [address] | | | | | | [phone] | | | +--------+ + + + [...]
--- OUTSIDE RECORDS SUMMARY | 2017-02-05 21:13 | XMS | Encounter Summary ---
Demographics + + + | Address | [address] | | | [place] [address] | + + + | Home Phone | | + + + | Preferred Language | Unknown | + + + | Marital Status | Single | + + + | Restorationist Affiliation | Unknown | + + + | Race | White | + + + | Ethnic Group | Not or | + + + Author + + + | Author | [facility] | + + + | Organization | [facility] | + + + | Address | Unknown | + + + | Phone | Unavailable | + + + Support +------+ +---------+ + | Name | Relationship | Address | Phone | +------+ +---------+ + ECON | Unknown | | +------+ +---------+ + Care Team Providers + +------+ + | Care Product Management Consultant Name | Role | Phone | [...] | stage IB2 | Eric Avila | [facility] | | | | | (HCC) | [address] | Regional | | | | | Procedures | [place], [place] | Cancer Cntr | | | | | CONSULT TO | [address] | [address] | | | | | NON - [facility] | Phone: | Marti Kidd, | | | | | PROVIDER | [phone] | [place] [address] | | | | | | Fax: | Phone: | | | | | | [phone] | [phone] | | | | | | | Fax: | | | | | | | [phone] | + +--------+ + + + + [...] cancer, FIGO | [address] | | | | | stage IB2 | Eric Avila | [facility] | | | | | (HCC) | [address] | [address] | | | | | Procedures | [place], [place] | [address] | | | | | CONSULT TO | [address] | Marti Kidd, | | | | | NON - [facility] | Phone: | [place] [address] | | | | | PROVIDER | [phone] | Phone: | | | | | | Fax: | [phone] | | | | | | [phone] | Fax: | | | | | | | [phone] | + +--------+ + + + + [...] & | Diagnoses | Non-[facility] | [facility] Continuous Towel Roller Onc | | | | Gynecology | Uterine | Epic Dept | [address] | | | | | cancer (HCC) | | [address] | | | | | Procedures | | [address] | | | | | [place] NEW | | [address] | | | | | PATIENT | | Pavilion | | | | | LEVEL V | | [facility] [place] | | | | | | | [address] | | | | | | | Phone: | | | | | | | [phone] | | | | | | | Fax: | | | | | | | [phone] | + +--------+ + + + + Encounter Details +--------+---------+ + + + | Date | Type | Department | Care Team | Description | +--------+---------+ + + + | 11/07/ | Office | [facility] | Quirino Martinez, | Cervical cancer, | | 2017 | Visit | [facility] | [address] | FIGO stage IB2 (HCC) | | | | Shubham [address] | [address] | (Primary Dx) | | | | [address] | [place], [place] | | | | | Road [address] | [address] | | | | | Shubham [place], | [phone] | | | | | [place] [address] | | | | | | [phone] | | | +--------+---------+ + + + [...] will be referred to Dr.Bryce Mackey in [facility] p) [phone]. You will also be referred to (or [...] - 11/07/2016 1:00 PM PDTReferral faxed to [facility]. Provided pt with phone number to clinic if no contact by the end of the week. Paris Moses MD - 11/07/2016 1:00 PM PDTFormatting of this note may be different fr om the original. 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 She was most recently admitted to [facility] from 09/20-09/22 for pulmonary embol ism and vaginal bleeding felt to be 2/2 cervical cancer. Per chart review, she had been diag nosed with PE in [place] on 09/14 but left AMA and was hospitalized at [place] on 09/15-09/19 whe re she was started on rivoroxaban. She then represented to [facility] on 09/30 and was restarte d on Xarelto at that time. Continuous Towel Roller Onc consultation was performed at [facility] in the setting of necrotic cervical [...] history (as compiled per Dr. Sterling at [facility]): 2009: HSIL pap 2009: Clinic note: s/p CKC in 01/2010, discrepancy in pathology report, at least stage I AI. She was seen and evaluated by Dr. Navarro Continuous Towel Roller/Onc. His recommendation is to repeat wide CK C cervical biopsy and send specimen to [facility]. 2011: Clinic note: Patient understands that she has no showed for surgery to cure her cervical cancer. She wants a 3rd opinion . 2013: Clinic Note: Cone biopsies done last @ [facility] 10/13/12. Histology CIN3 with endocervic al [...] EBRT Recommend evaluation by radiation oncology in [place], [place] given distance from patient's home in [place] Chemotherapy with Dr. Murillo Continue Xarelto as prescribed for bilateral PE RTC in 2 months for follow up Instructed to quit smoking - eRx given for nicotine patch eRX given for oxycodone, Miralax. This patient was seen and discussed with Dr. Serafin Ventura. Paris Moses MD PGY-2, Obstetrics & Gynecology Pager [phone] I saw and evaluated the patient on [...]
--- OUTSIDE RECORDS SUMMARY | 2017-02-05 21:13 | XMS | Encounter Summary ---
Demographics + + + | Address | [address] | | | [place] [address] | + + + | Home Phone | | + + + | Preferred Language | Unknown | + + + | Marital Status | Single | + + + | Hoahaoism Affiliation | Unknown | + + + | Race | White | + + + | Ethnic Group | Not or | + + + Author + + + | Author | [facility] | + + + | Organization | [facility] | + + + | Address | Unknown | + + + | Phone | Unavailable | + + + Support +------+ +---------+ + | Name | Relationship | Address | Phone | +------+ +---------+ + ECON | Unknown | | +------+ +---------+ + Care Team Providers + +------+ + | Care Family Law Paralegal Name | Role | Phone | + [...] Prior Authorization | | 2016 | | [facility] | [address] | Request - Medication | | | | Shubham [address] | [address] | | | | | [address] | [place], [place] | | | | | [address] | [address] | | | | | Shubham [place], | [phone] | | | | | [place] [address] | | | | | | [phone] | | | +--------+ + + + [...]
--- OUTSIDE RECORDS SUMMARY | 2017-02-05 21:13 | XMS | Encounter Summary ---
Demographics + + + | Address | [address] | | | [place] [address] | + + + | Home Phone | | + + + | Preferred Language | Unknown | + + + | Marital Status | Single | + + + | Yazidi Affiliation | Unknown | + + + | Race | White | + + + | Ethnic Group | Not or | + + + Author + + + | Author | [facility] | + + + | Organization | [facility] | + + + | Address | Unknown | + + + | Phone | Unavailable | + + + Support +------+ +---------+ + | Name | Relationship | Address | Phone | +------+ +---------+ + ECON | Unknown | | +------+ +---------+ + Care Team Providers + +------+ + | Care Local Telephone Operator Name | Role | Phone | [...] | | 2016 | | [facility] | [address] | Michelle) | | | | Shubham [address] | [address] | | | | | [address] | [place], [place] | | | | | [address] | [address] | | | | | Shubham [place], | [phone] | | | | | [place] [address] | | | | | | [phone] | | | +--------+ + + + [...]
[2017-02-17] MEDS ORDERED: AUGMENTIN 875-1 EACH PO (04:25)
== END 2017-02-05 21:20 | disposition home or self-care (01) ==
LOC: ED 20:18
DX: I26.99 Other pulmonary embolism without acute cor pulmonale (principal); C53.9 Malignant neoplasm of cervix uteri, unspecified; F17.200 Nicotine dependence, unspecified, uncomplicated; Z87.442 Personal history of urinary calculi; Z86.711 Personal history of pulmonary embolism; Z96.0 Presence of urogenital implants; Z91.038 Other insect allergy status; Z91.030 Bee allergy status; Z88.2 Allergy status to sulfonamides; Z88.1 Allergy status to other antibiotic agents; Z88.8 Allergy status to other drugs, medicaments and biological substances; Z79.899 Other long term (current) drug therapy; Z79.01 Long term (current) use of anticoagulants
CPT/HCPCS: 90471; 99282; J1650

== ENCOUNTER 2017-02-12 20:13 | Emergency (ER) | payer OTHER ==
[~2017-02-12] VITALS: Ht 165.1 cm; Wt 49.9 kg
--- OUTSIDE RECORDS SUMMARY | 2017-02-12 20:48 | XMS | Encounter Summary ---
Demographics + + + | Address | [address] | | | [place] [address] | + + + | Home Phone | | + + + | Preferred Language | Unknown | + + + | Marital Status | Single | + + + | Amish Affiliation | Unknown | + + + | Race | White | + + + | Ethnic Group | Not or | + + + Author + + + | Author | [facility] | + + + | Organization | [facility] | + + + | Address | Unknown | + + + | Phone | Unavailable | + + + Support +------+ +---------+ + | Name | Relationship | Address | Phone | +------+ +---------+ + ECON | Unknown | | +------+ +---------+ + Care Team Providers + +------+ + | Care Radio Journalist Name | Role | Phone | + +------+ + | No Pcp Per Patient | PCP | Unavailable | + +------+ + Reason for Visit + + + | Reason | Comments | + + + | Pain Management | Quirino Martinez | + + + Encounter Details +--------+ + + + + | Date | Type | Department | Care Team | Description | +--------+ + + + + | 02/01/ | Telephone | [facility] | Quirino Martinez, | Pain Management | | 2017 | | [facility] | [address] | Mira Martinez) | | | | Shubham [address] | [facility] | | | | | Eric [facility] | [place], [place] | | | | | [address] | [address] | | | | | Shubham [place], | [phone] | | | | | [place] [address] | | | | | | [phone] | | | +--------+ + + + [...]
--- OUTSIDE RECORDS SUMMARY | 2017-02-12 20:48 | XMS | Encounter Summary ---
Demographics + + + | Address | [address] | | | [place] [address] | + + + | Home Phone | | + + + | Preferred Language | Unknown | + + + | Marital Status | Single | + + + | Moravian Affiliation | Unknown | + + + | Race | White | + + + | Ethnic Group | Not or | + + + Author + + + | Author | [facility] | + + + | Organization | [facility] | + + + | Address | Unknown | + + + | Phone | Unavailable | + + + Support +------+ +---------+ + | Name | Relationship | Address | Phone | +------+ +---------+ + ECON | Unknown | | +------+ +---------+ + Care Team Providers + +------+ + | Care Director Of Strategic Alliances Name | Role | Phone | + [...] Refill Request | | 2017 | | [facility] | [address] | | | | | Shubham [address] | [address] | | | | | [address] | [place], [place] | | | | | [address] | [address] | | | | | Shubham [place], | [phone] | | | | | [place] [address] | | | | | | [phone] | | | +--------+ + + + [...]
--- OUTSIDE RECORDS SUMMARY | 2017-02-12 20:48 | XMS | Clinical Summary ---
Demographics + + + | Address | [address] | | | [place] [address] | + + + | Home Phone | | + + + | Preferred Language | Unknown | + + + | Marital Status | Single | + + + | Roman Catholic Affiliation | Unknown | + + + [...] Team Providers + +------+ + | Care Transportation Design Engineer Name | Role | Phone | + +------+ + | No Pcp Per Patient | PP | Unavailable | + +------+ + Source Comments FARRUKH is fully live on both [facility] Ambulatory and [facility] InPatient.[facility] Allergies + + + + + [...] | +--------+ + + + + | 02/09/ | Telephone | | Quirino Martinez, | Patient referral | | 2016 | | | MD | (Quirino Martinez) | +--------+ + + + + | 02/01/ | Telephone | | Quirino Martinez, | Pain Management | | 2016 | | | MD | (Quirino Martinez) | +--------+ + + + + | 11/30/ | Telephone | | Quirino Martinez, | Discussion | | 2016 | | | MD | | +--------+ + + + + | 11/30/ | Telephone | | Quirino Martinez, | Refill Request | 2016 | | | MD | | +--------+ + + + + | 11/21/ | Telephone | | Quirino Martinez, | Question (Dr | 2016 | | | MD | [place]) | +--------+ + + + + from [...]
--- OUTSIDE RECORDS SUMMARY | 2017-02-12 20:48 | XMS | Encounter Summary ---
Demographics + + + | Address | [address] | | | [place] [address] | + + + | Home Phone | | + + + | Preferred Language | Unknown | + + + | Marital Status | Single | + + + | Zoroastrianism Affiliation | Unknown | + + + [...] Team Providers + +------+ + | Care Refrigeration Repair Supervisor Name | Role | Phone | [...] | | 2016 | | [facility] | [address] | Michelle) | | | | Shubham [address] | [address] | | | | | [address] | [place], [place] | | | | | [address] | [address] | | | | | Shubham [place], | [phone] | | | | | [place] [address] | | | | | | [phone] | | | +--------+ + + + [...]
[2017-02-17] MEDS ORDERED: AUGMENTIN 875-1 EACH PO (04:25)
== END 2017-02-12 22:31 | disposition home or self-care (01) ==
LOC: ED 20:13
DX: G89.3 Neoplasm related pain (acute) (chronic) (principal); C53.9 Malignant neoplasm of cervix uteri, unspecified; F17.200 Nicotine dependence, unspecified, uncomplicated; Z87.442 Personal history of urinary calculi; Z86.711 Personal history of pulmonary embolism; Z91.030 Bee allergy status; Z91.038 Other insect allergy status; Z88.1 Allergy status to other antibiotic agents; Z88.5 Allergy status to narcotic agent; Z88.2 Allergy status to sulfonamides; Z88.8 Allergy status to other drugs, medicaments and biological substances; Z79.01 Long term (current) use of anticoagulants
CPT/HCPCS: 99282

== ENCOUNTER 2017-02-15 13:12 | Emergency (ER) | payer OTHER ==
[~2017-02-15] VITALS: Ht 165.1 cm; Wt 49.9 kg
[2017-02-15] MEDS ORDERED: OXYCODONE HCL15 MG PO (13:27)
[2017-02-17] MEDS ORDERED: AUGMENTIN 875-1 EACH PO (04:25)
== END 2017-02-15 13:32 | disposition home or self-care (01) ==
LOC: ED 13:12
DX: Z43.6 Encounter for attention to other artificial openings of urinary tract (principal); F17.200 Nicotine dependence, unspecified, uncomplicated; Z87.442 Personal history of urinary calculi; Z86.711 Personal history of pulmonary embolism; Z91.030 Bee allergy status; Z91.038 Other insect allergy status; Z88.2 Allergy status to sulfonamides; Z88.5 Allergy status to narcotic agent; Z88.1 Allergy status to other antibiotic agents; Z79.899 Other long term (current) drug therapy; Z88.8 Allergy status to other drugs, medicaments and biological substances; Z48.01 Encounter for change or removal of surgical wound dressing; Z85.41 Personal history of malignant neoplasm of cervix uteri
CPT/HCPCS: 99282

== ENCOUNTER → 2017-02-17 | Emergency (ER) | payer OTHER ==
[~2017-02-17] VITALS: Ht 165.1 cm; Wt 49.9 kg
[~2017-02-17] MED LIST changes: +AUGMENTIN 875-1 EACH PO
--- OUTSIDE RECORDS SUMMARY | 2017-02-17 04:31 | XMS | Clinical Summary ---
Demographics + + + | Address | [address] | | | [place] [address] | + + + | Home Phone [...] Team Providers + +------+ + | Care Floor Person Name | Role | Phone | + +------+ + | No Pcp Per Patient | PP | Unavailable | + +------+ + Source Comments FARRUKH is fully live on both [facility] Ambulatory and [facility] InPatient.[facility] Allergies + + + + + [...]
--- OUTSIDE RECORDS SUMMARY | 2017-02-17 04:31 | XMS | Encounter Summary ---
Demographics + + + | Address | [address] | | | [place] [address] | + + + | Home Phone [...] Author + + + | Author | [facility] | + + + | Organization | [facility] | + + + | Address | Unknown | + + + | Phone | Unavailable | + + + Support +------+ +---------+ + | Name | Relationship | Address | Phone | +------+ +---------+ + ECON | Unknown | | +------+ +---------+ + Care Team Providers + +------+ + | Care Replenishment Specialist Name | Role | Phone | [...] + + | 02/01/ | Telephone | [facility] | Quirino Martinez, | Pain Management | | 2017 | | [facility] | [address] | Mira Martinez) | | | | Shubham [address] | [facility] | | | | | Eric [facility] | [place], [place] | | | | | [address] | [address] | | | | | Shubham [place], | [phone] | | | | | [place] [address] | | | | | | [phone] | | | +--------+ + + + [...]
--- OUTSIDE RECORDS SUMMARY | 2017-02-17 04:31 | XMS | Encounter Summary ---
Demographics + + + | Address | [address] | | | [place] [address] | + + + | Home Phone | | + + + | Preferred Language | Unknown | + + + | Marital Status | Single | + + + | Restoration Affiliation | Unknown | + + + | Race | White | + + + | Ethnic Group | Not or | + + + Author + + + | Author | [facility] | + + + | Organization | [facility] | + + + | Address | Unknown | + + + | Phone | Unavailable | + + + Support +------+ +---------+ + | Name | Relationship | Address | Phone | +------+ +---------+ + ECON | Unknown | | +------+ +---------+ + Care Team Providers + +------+ + | Care Land Development Manager Name | Role | Phone | [...] Refill Request | | 2017 | | [facility] | [address] | | | | | Shubham [address] | [address] | | | | | [address] | [place], [place] | | | | | [address] | [address] | | | | | Shubham [place], | [phone] | | | | | [place] [address] | | | | | | [phone] | | | +--------+ + + + [...]
--- OUTSIDE RECORDS SUMMARY | 2017-02-17 04:31 | XMS | Encounter Summary ---
Demographics + + + | Address | [address] | | | [place] [address] | + + + | Home Phone | | + + + | Preferred Language | Unknown | + + + | Marital Status | Single | + + + | Gnosticism Affiliation | Unknown | + + + | Race | White | + + + | Ethnic Group | Not or | + + + Author + + + | Author | [facility] | + + + | Organization | [facility] | + + + | Address | Unknown | + + + | Phone | Unavailable | + + + Support +------+ +---------+ + | Name | Relationship | Address | Phone | +------+ +---------+ + ECON | Unknown | | +------+ +---------+ + Care Team Providers + +------+ + | Care Ramp Jockey Name | Role | Phone | + [...] Telephone | [facility] | Quirino Martienz, | Discussion | | 2017 | | [facility] | [address] | | | | | [address] | [address] | | | | | [address] | [place], [place] | | | | | [address] | [address] | | | | | Shubham [place], | [phone] | | | | | [place] [address] | | | | | | [phone] | | | +--------+ + + + [...]
--- OUTSIDE RECORDS SUMMARY | 2017-02-17 04:31 | XMS | Encounter Summary ---
Demographics + + + | Address | [address] | | | [place] [address] | + + + | Home Phone | | + + + | Preferred Language | Unknown | + + + | Marital Status | Single | + + + | Samaritan Affiliation | Unknown | + + + | Race | White | + + + | Ethnic Group | Not or | + + + Author + + + | Author | [facility] | + + + | Organization | [facility] | + + + | Address | Unknown | + + + | Phone | Unavailable | + + + Support +------+ +---------+ + | Name | Relationship | Address | Phone | +------+ +---------+ + ECON | Unknown | | +------+ +---------+ + Care Team Providers + +------+ + | Care Sight Effects Specialist Name | Role | Phone | [...] | | 2016 | | [facility] [place] [facility] | [address] | Michelle) | | | | Shubham [address] | [address] | | | | | [address] | [place], [place] | | | | | [address] | [address] | | | | | Shubham [place], | [phone] | | | | | [place] [address] | | | | | | [phone] | | | +--------+ + + + [...]
--- OUTSIDE RECORDS SUMMARY | 2017-02-17 04:31 | XMS | Encounter Summary ---
Demographics + + + | Address | [address] | | | [place] [address] | + + + | Home Phone | | + + + | Preferred Language | Unknown | + + + | Marital Status | Single | + + + | Yazidism Affiliation | Unknown | + + + | Race | White | + + + | Ethnic Group | Not or | + + + Author + + + | Author | [facility] | + + + | Organization | [facility] | + + + | Address | Unknown | + + + | Phone | Unavailable | + + + Support +------+ +---------+ + | Name | Relationship | Address | Phone | +------+ +---------+ + ECON | Unknown | | +------+ +---------+ + Care Team Providers + +------+ + | Care Applications Intern Name | Role | Phone | + [...] | | 2016 | | [facility] | [address] | Michelle) | | | | Shubham [address] | [address] | | | | | [address] | [place], [place] | | | | | [address] | [address] | | | | | Shub[place], | [phone] | | | | | [place] [address] | | | | | | [phone] | | | +--------+ + + + [...]
--- OUTSIDE RECORDS SUMMARY | 2017-02-17 04:31 | XMS | Encounter Summary ---
Demographics + + + | Address | [address] | | | [place] [address] | + + + | Home Phone [...] + + + | Author | [facility] | + + + | Organization | [facility] | + + + | Address | Unknown | + + + | Phone | Unavailable | + + + Support +------+ +---------+ + | Name | Relationship | Address | Phone | +------+ +---------+ + ECON | Unknown | | +------+ +---------+ + Care Team Providers + +------+ + | Care Button Pusher Name | Role | Phone | + [...] + + | 02/01/ | Telephone | [facility] | Quirino Martinez, | Pain Management | | 2017 | | [facility] | [address] | Mira Martinez) | | | | Shubham [address] | [facility] | | | | | Eric [facility] | [place], [place] | | | | | [address] | [address] | | | | | Shubham [place], | [phone] | | | | | [place] [address] | | | | | | [phone] | | | +--------+ + + + [...]
--- OUTSIDE RECORDS SUMMARY | 2017-02-17 04:31 | XMS | Encounter Summary ---
Demographics + + + | Address | [address] | | | [place] [address] | + + + | Home Phone [...] Author + + + | Author | [facility] | + + + | Organization | [facility] | + + + | Address | Unknown | + + + | Phone | Unavailable | + + + Support +------+ +---------+ + | Name | Relationship | Address | Phone | +------+ +---------+ + ECON | Unknown | | +------+ +---------+ + Care Team Providers + +------+ + | Care Egg Setter Name | Role | Phone | + [...] Refill Request | | 2017 | | [facility] | [address] | | | | | Shubham [address] | [address] | | | | | [address] | [place], [place] | | | | | [address] | [address] | | | | | Shubham [place], | [phone] | | | | | [place] [address] | | | | | | [phone] | | | +--------+ + + + [...]
--- OUTSIDE RECORDS SUMMARY | 2017-02-17 04:31 | XMS | Clinical Summary ---
Demographics + + + | Address | [address] | | | [place] [address] | + + + | Home Phone | | + + + | Preferred Language | Unknown | + + + | Marital Status | Single | + + + | Islam Affiliation | Unknown | + + + [...] Team Providers + +------+ + | Care Research Tech Name | Role | Phone | + +------+ + | No Pcp Per Patient | PP | Unavailable | + +------+ + Source Comments FARRUKH is fully live on both [facility] Ambulatory and [facility] InPatient.[facility] Allergies + + + + [...]
--- NOTE | 2017-02-19 23:46 | EKG ---
[facility] [address] [place] [address] Signed Sinus tachycardia Possible Left atrial enlargement Borderline ECG When compared with ECG of 01-FEB-2017 12:39, No significant change was found Confirmed by AMARJIT NORTON MD ([id number]) on 02/19/2017 11:45:51 PM Electronically Signed By: AMARJIT NORTON MD 02/19/17 2346 PATIENT NAME: BULMARO CARDOZA Electrocardiogram DATE OF : 77 PHYSICIAN: AMARJIT NORTON MD REPORT #: [id number] REPORT IS CONFIDENTIAL AND NOT TO BE RELEASED WITHOUT AUTHORIZATION
--- NOTE | 2017-03-02 07:24 | NUR ---
02/22/17 @ 10:15am- ANDRIAW and ANDRIAW Luz from [facility] went to visit patient at her residence. Patient boyfriend was there cleaning out the apartment. Patient boyfriend stated patient has left back to [place] to live with her mom due to her poor health condition and that he does not feel she would be able to make it back to [place] even if she wanted to move back. Patient boyfriend stated he was cleaning out the apartment because they had to be out of it. No further follow up at this time.
== END ==
LOC: ED 00:47
DX: J98.11 Atelectasis (principal); R07.81 Pleurodynia; I27.82 Chronic pulmonary embolism; C53.9 Malignant neoplasm of cervix uteri, unspecified; Z87.442 Personal history of urinary calculi; Z98.890 Other specified postprocedural states; Z91.030 Bee allergy status; Z91.038 Other insect allergy status; Z88.2 Allergy status to sulfonamides; Z88.5 Allergy status to narcotic agent; Z88.1 Allergy status to other antibiotic agents; Z88.8 Allergy status to other drugs, medicaments and biological substances
CPT/HCPCS: 71045; 71260; 74177; 80053; 81001; 83605; 83690; 84484; 84703; 85025; 85610; 85730; 86850; 86900; 86901; 93005; 93010; 96374; 99284; J2405; Q9967